=== PATIENT | male | born 1985 | race Caucasian/White ===

== ENCOUNTER 2017-07-24 19:23 | Observation (INO) | payer OTHER ==
[~2017-07-24] VITALS: Ht 182.9 cm; Wt 100.6 kg
[2017-07-24 20:33] LABS: BASO % 0.1 %; BASO ABS # 0.01 K/uL (0-0.2); EOS % 0.7 %; EOS ABS # 0.07 K/uL (0-0.5); HEMATOCRIT 45.8 % (42-52); HEMOGLOBIN 15.6 g/dL (14.0-18.0); IG# 0.02 K/uL (0.00-0.02); LYMPH % 20.9 %; LYMPH ABS # 2.03 K/uL (1.2-3.4); MEAN CELL VOLUME 87.1 fL (80-100); MEAN CORPUSCULAR HEMOGLOBIN 29.7 pg (25-34); MEAN CORPUSCULAR HGB CONC 34.1 g/dl (32-36); MEAN PLATELET VOLUME 10.8 fL (7.4-10.4); MONO % 8.2 %; NEUT % 69.9 %; PLATELET COUNT 286 K/uL (130-400); RED CELL DISTRIBUTION WIDTH CV 12.2 % (11.5-14.5); RED CELL DISTRIBUTION WIDTH SD 38.8 fL (36.4-46.3); WHITE BLOOD COUNT 9.73 K/uL (4.8-10.8)
--- NOTE | 2017-07-24 20:51 | DIAGNOSTIC IMAGING REPORT ---
GALLBLADDER-ABD LIMITED CLINICAL HISTORY: 31 years-old Male presenting with abd pain . TECHNIQUE: Real-time grayscale and limited color Doppler ultrasound imaging of the abdomen limited to the right upper quadrant was performed. COMPARISON: None. FINDINGS: Pancreas: Visualized portions of the pancreatic head and body normal. Liver: Normal echogenicity and echotexture. The liver measures 17.5 cm in maximal sagittal dimension. No sonographic evidence of hepatic mass. Main portal vein patent with normal directional flow. Biliary: No intrahepatic biliary ductal dilatation. Common bile duct measures up to 8 mm in diameter and may contain hypoechoic echogenic debris. Gallbladder: Gallstones without evidence of gallbladder distention, wall thickening, or pericholecystic fluid or inflammatory change. Right kidney: Normal in appearance. No hydronephrosis. Ascites: None. IMPRESSION: Cholelithiasis and extrahepatic biliary ductal dilatation with possible common duct sludge or calculi. No evidence of cholecystitis. Electronically signed by: Joe Carrington M.D. 07/24/2017 8:50 PM Dictated Date/Time: 07/24/2017 8:48 PM
[2017-07-24 20:57] LABS: ALBUMIN 4.1 gm/dl (3.4-5.0); CALCIUM 9.3 mg/dl (8.5-10.1); CREATININE 0.95 mg/dl (0.60-1.40); POTASSIUM 3.6 mmol/L (3.5-5.1)
[2017-07-24 21:00] LABS: TOTAL PROTEIN 7.7 gm/dl (6.4-8.2)
--- NOTE | 2017-07-24 21:40 | History and Physical ---
History & Physical Date & Time of Service: Jul 24, 2017 at 21:38 Chief Complaint: Stomach Pain, Tingling In Fingers Primary Care Physician: No Doctor, Assigned History of Present Illness Source: patient 31 y/o M - denies any medical history. Pt has had intermittent moderate to severe RUQ pain for one week. He denies fevers, nausea, vomiting or diarrhea. The pt was subjected to an US in the ER which revealed extrahepatic biliary ductal dilatation with possible common duct sludge or calculi. The GI service was contacted and have advised that the pt would likely benefit from an ERCP. His pain has resolved at the time of admission. Initial labs are WNL aside from a slight AST elevation. Past Medical/Surgical History Denies any active medical issues. 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 Smoking Status: Never Smoker Allergies Coded Allergies: No Known Allergies (Unverified , 07/24/17) Home Medications No Active Prescriptions or Reported Meds Review of Systems Constitutional: No fever, No chills, No sweats Eyes: No worsening of vision ENT: No hearing loss, No unusual epistaxis, No nasal symptoms Respiratory: No cough, No sputum, No wheezing Cardiovascular: No chest pain, No orthopnea, No PND Abdomen: + pain, No nausea, No vomiting Musculoskeletal: No joint pain, No muscle pain Genitourinary - Male: No hematuria, No dysuria Neurologic: No memory loss, No paralysis, No weakness Psychiatric: No depression symptoms Endocrine: No fatigue Hematologic / Lymphatic: No abnormal bleeding/bruising Integumentary: No rash Allergic / Immunologic: No environmental allergies Physical Exam Vital Signs Date Time Temp Pulse Resp B/P (MAP) Pulse Ox O2 Delivery O2 Flow Rate FiO2 07/24/17 19:26 36.9 91 18 169/91 94 Room Air General Appearance: + pertinent finding Head: normocephalic Eyes: normal inspection ENT: normal ENT inspection, pharynx normal Neck: supple, thyroid normal Respiratory/Chest: chest non-tender, lungs clear, normal breath sounds Cardiovascular: regular rate, rhythm, no edema, no gallop Abdomen/GI: normal bowel sounds, non tender, soft Back: normal inspection, no CVA tenderness Extremities/Musculoskelatal: normal inspection, no calf tenderness, normal capillary refill Neurologic/Psych: 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, no motor/sensory deficits, alert, oriented x 3 Skin: normal color Diagnostics Laboratory Results Results Past 24 Hours Test 07/24/17 20:10 Range/Units White Blood Count 9.73 4.8-10.8 K/uL Red Blood Count 5.26 4.7-6.1 M/uL Hemoglobin 15.6 14.0-18.0 g/dL Hematocrit 45.8 42-52 % Mean Corpuscular Volume 87.1 80-100 fL Mean Corpuscular Hemoglobin 29.7 25-34 pg Mean Corpuscular Hemoglobin Concent 34.1 32-36 g/dl Platelet Count 286 130-400 K/uL Mean Platelet Volume 10.8 7.4-10.4 fL Neutrophils (%) (Auto) 69.9 % Lymphocytes (%) (Auto) 20.9 % Monocytes (%) (Auto) 8.2 % Eosinophils (%) (Auto) 0.7 % Basophils (%) (Auto) 0.1 % Neutrophils # (Auto) 6.80 1.4-6.5 K/uL Lymphocytes # (Auto) 2.03 1.2-3.4 K/uL Monocytes # (Auto) 0.80 0.11-0.59 K/uL Eosinophils # (Auto) 0.07 0-0.5 K/uL Basophils # (Auto) 0.01 0-0.2 K/uL RDW Standard Deviation 38.8 36.4-46.3 fL RDW Coefficient of Variation 12.2 11.5-14.5 % Immature Granulocyte % (Auto) 0.2 % Immature Granulocyte # (Auto) 0.02 0.00-0.02 K/uL Urine Color DK YELLOW Urine Appearance CLEAR CLEAR Urine pH 7.5 4.5-7.5 Urine Specific [place] 1.026 1.000-1.030 Urine Protein NEG NEG Urine Glucose (UA) NEG NEG Urine Ketones TRACE NEG Urine Occult Blood NEG NEG Urine Nitrite NEG NEG Urine Bilirubin NEG NEG Urine Urobilinogen NEG NEG Urine Leukocyte Esterase NEG NEG Urine WBC (Auto) 1-5 0-5 /hpf Urine RBC (Auto) 0-4 0-4 /hpf Urine Hyaline Casts (Auto) 0-5 /lpf Urine Epithelial Cells (Auto) >30 0-5 /lpf Urine Bacteria (Auto) NEG NEG Urine Renal Epithelial Cells 0-5 /lpf Urine Pathogenic Casts 0 /lpf Urine Mucus PRESENT NONE PRSENT Sodium Level 138 136-145 mmol/L Potassium Level 3.6 3.5-5.1 mmol/L Chloride Level 102 98-107 mmol/L Carbon Dioxide Level 29 21-32 mmol/L Anion Gap 7.0 3-11 mmol/L Blood Urea Nitrogen 11 7-18 mg/dl Creatinine 0.95 0.60-1.40 mg/dl Est Creatinine Clear Calc Drug Dose 140.9 ml/min Estimated GFR () 124.9 Estimated GFR (Non- 107.7 BUN/Creatinine Ratio 11.1 10-20 Random Glucose 106 70-99 mg/dl Calcium Level 9.3 8.5-10.1 mg/dl Total Bilirubin 1.1 0.2-1 mg/dl Direct Bilirubin 0.4 0-0.2 mg/dl Aspartate Amino Transf (AST/SGOT) 76 15-37 U/L Alanine Aminotransferase (ALT/SGPT) 61 12-78 U/L Alkaline Phosphatase 89 45-117 U/L Total Protein 7.7 6.4-8.2 gm/dl Albumin 4.1 3.4-5.0 gm/dl Lipase 140 73-393 U/L Diagnostic Radiology US abdomen: Cholelithiasis and extrahepatic biliary ductal dilatation with possible common duct sludge or calculi. No evidence of cholecystitis. Impression Assessment and Plan 31 y/o M - denies any medical history. Pt has had intermittent moderate to severe RUQ pain for one week. He denies fevers, nausea, vomiting or diarrhea. The pt was subjected to an US in the ER which revealed extrahepatic biliary ductal dilatation with possible common duct sludge or calculi. The GI service was contacted and have advised that the pt would likely benefit from an ERCP. His pain has resolved at the time of admission. Initial labs are WNL aside from a slight AST elevation. The pt is admitted for likely ERCP. We will keep him NPO and provide IVF and analgesics as needed. Biliary obstruction is present possibly due to a calculus or sludge. He may then, eventually require a cholecystectomy. We will consult with GI following the procedure. LFTs will be repeated AM. Full code - SCDs Total time for this admit including review of labs, meds, imaging, records - discussion with pt and ER attending - 35 min Level of Care Med/Surg Resuscitation Status FULL RESUSCITATION VTE Prophylaxis Risk Level: Very Low Given or contraindicated: SCD's
[2017-07-24] MEDS ORDERED: ONDANSETRON INJ 2 MG/ML 2 ML VIAL IV PRN (22:15)
[2017-07-24] MEDS ORDERED: MoRPHine SULFATE 2 MG/ML CARP IV PRN (22:30)
[2017-07-24] MEDS ORDERED: IV FLUIDS COMPLETED PRN (23:00)
[2017-07-24 23:12] VITALS: O2SAT 98
--- NOTE | 2017-07-24 23:53 | EMERGENCY ROOM VISIT NOTE ---
History Report prepared by Malihaibracquel: Víctor Juárez Under the Supervision of: Dr. Marcellus Garcia D.O. First contact with patient: 19:30 Chief Complaint: ABDOMINAL PAIN Stated Complaint: STOMACH PAIN, TINGLING IN FINGERS History of Present Illness The patient is a 31 year old male who presents to the Emergency Room with complaints of resolved abdominal pain that began at 181. He describes the pain as a sharp sensation. The patient states that he has not felt himself all week. He reports that around 1817 today he developed abdominal pain. The patient states that he was having difficulties breathing and talking when his abdominal pain started. He states that the pain lasted for 20 minutes. The patient states that he then began to develop tingling in his fingers.He reports that he then experienced diaphoresis. The patient states that by the time the EMT came to evaluate him, his pain resolved. The patient reports he had similar symptoms in the past, but reports that his symptoms resolved over night. The patient denies headache, change in vision, fevers, chest pain, shortness of breath, nausea, vomiting, diarrhea, pain with urination, and melena. The patient denies history of heart disease, smoking, diabetes, hypertension, hyperlipidemia. Source of History: patient Onset: 1817 Position: abdomen Quality: sharp Timing: resolved Associated Symptoms: + diaphoresis, + SOB, + numbness, No fevers, No headache, No chest pain, No nausea, No vomiting, No diarrhea, No urinary symptoms Review of Systems See HPI for pertinent positives & negatives. A total of 10 systems reviewed and were otherwise negative. Past Medical & Surgical Medical Problems: (1) Biliary obstruction (2) No known problems Family History FH: gallbladder disease Heart disease Hypertension Social History Smoking Status: Never Smoker Smokeless Tobacco Use: No Alcohol Use: none Drug Use: none Marital Status: single Housing Status: lives with roommate Occupation Status: employed Current/Historical Medications No Active Prescriptions or Reported Meds Allergies Coded Allergies: No Known Allergies (Unverified , 07/24/17) Physical Exam Vital Signs Date Time Temp Pulse Resp B/P (MAP) Pulse Ox O2 Delivery O2 Flow Rate FiO2 07/24/17 23:12 77 18 124/88 98 Room Air 07/24/17 21:20 77 16 149/97 97 Room Air 07/24/17 19:26 36.9 91 18 169/91 94 Room Air Physical Exam GENERAL: Sitting up in bed, alert, well appearing, well nourished, no distress, non-toxic EYE EXAM: normal conjunctiva. PERRL and EOM's grossly intact. OROPHARYNX: no exudate, no erythema, lips, buccal mucosa, and tongue normal and mucous membranes are moist NECK: supple, no nuchal rigidity, no adenopathy, non-tender LUNGS: Clear to auscultation. Normal chest wall mechanics HEART: no murmurs, S1 normal and S2 normal ABDOMEN: abdomen soft, non-tender, normo-active bowel sounds, no masses, no rebound or guarding. BACK: Back is symmetrical on inspection and there is no deformity, no midline tenderness, no CVA tenderness. SKIN: no rashes and no bruising UPPER EXTREMITIES: upper extremities are grossly normal. LOWER EXTREMITIES: No pitting edema. NEURO EXAM: Normal sensorium, cranial nerves II-XII grossly intact, normal speech, no gross weakness of arms, no gross weakness of legs. Gross sensation intact. Medical Decision & Procedures ER Provider Diagnostic Interpretation: Radiology results as stated below per my review and the radiologist's interpretation: GALLBLADDER-ABD LIMITED CLINICAL HISTORY: 31 years-old Male presenting with abd pain . TECHNIQUE: Real-time grayscale and limited color Doppler ultrasound imaging of the abdomen limited to the right upper quadrant was performed. COMPARISON: None. FINDINGS: Pancreas: Visualized portions of the pancreatic head and body normal. Liver: Normal echogenicity and echotexture. The liver measures 17.5 cm in maximal sagittal dimension. No sonographic evidence of hepatic mass. Main portal vein patent with normal directional flow. Biliary: No intrahepatic biliary ductal dilatation. Common bile duct measures up to 8 mm in diameter and may contain hypoechoic echogenic debris. Gallbladder: Gallstones without evidence of gallbladder distention, wall thickening, or pericholecystic fluid or inflammatory change. Right kidney: Normal in appearance. No hydronephrosis. Ascites: None. IMPRESSION: Cholelithiasis and extrahepatic biliary ductal dilatation with possible common duct sludge or calculi. No evidence of cholecystitis. Electronically signed by: Joe Carrington M.D. 07/24/2017 8:50 PM Dictated Date/Time: 07/24/2017 8:48 PM Laboratory Results 07/24/17 20:10 Red Blood Count 5.26, Mean Corpuscular Volume 87.1, Mean Corpuscular Hemoglobin 29.7, Mean Corpuscular Hemoglobin Concent 34.1, Mean Platelet Volume 10.8, Neutrophils (%) (Auto) 69.9, Lymphocytes (%) (Auto) 20.9, Monocytes (%) (Auto) 8.2, Eosinophils (%) (Auto) 0.7, Basophils (%) (Auto) 0.1, Neutrophils # (Auto) 6.80, Lymphocytes # (Auto) 2.03, Monocytes # (Auto) 0.80, Eosinophils # (Auto) 0.07, Basophils # (Auto) 0.01 07/24/17 20:10 Test 07/24/17 20:10 White Blood Count 9.73 K/uL (4.8-10.8) Red Blood Count 5.26 M/uL (4.7-6.1) Hemoglobin 15.6 g/dL (14.0-18.0) Hematocrit 45.8 % (42-52) Mean Corpuscular Volume 87.1 fL (80-100) Mean Corpuscular Hemoglobin 29.7 pg (25-34) Mean Corpuscular Hemoglobin Concent 34.1 g/dl (32-36) Platelet Count 286 K/uL (130-400) Mean Platelet Volume 10.8 fL (7.4-10.4) Neutrophils (%) (Auto) 69.9 % Lymphocytes (%) (Auto) 20.9 % Monocytes (%) (Auto) 8.2 % Eosinophils (%) (Auto) 0.7 % Basophils (%) (Auto) 0.1 % Neutrophils # (Auto) 6.80 K/uL (1.4-6.5) Lymphocytes # (Auto) 2.03 K/uL (1.2-3.4) Monocytes # (Auto) 0.80 K/uL (0.11-0.59) Eosinophils # (Auto) 0.07 K/uL (0-0.5) Basophils # (Auto) 0.01 K/uL (0-0.2) RDW Standard Deviation 38.8 fL (36.4-46.3) RDW Coefficient of Variation 12.2 % (11.5-14.5) Immature Granulocyte % (Auto) 0.2 % Immature Granulocyte # (Auto) 0.02 K/uL (0.00-0.02) Urine Color DK YELLOW Urine Appearance CLEAR (CLEAR) Urine pH 7.5 (4.5-7.5) Urine Specific [place] 1.026 (1.000-1.030) Urine Protein NEG (NEG) Urine Glucose (UA) NEG (NEG) Urine Ketones TRACE (NEG) Urine Occult Blood NEG (NEG) Urine Nitrite NEG (NEG) Urine Bilirubin NEG (NEG) Urine Urobilinogen NEG (NEG) Urine Leukocyte Esterase NEG (NEG) Urine WBC (Auto) 1-5 /hpf (0-5) Urine RBC (Auto) 0-4 /hpf (0-4) Urine Hyaline Casts (Auto) /lpf (0-5) Urine Epithelial Cells (Auto) >30 /lpf (0-5) Urine Bacteria (Auto) NEG (NEG) Urine Renal Epithelial Cells /lpf (0-5) Urine Pathogenic Casts /lpf (0) Urine Mucus PRESENT (NONE PRSENT) Anion Gap 7.0 mmol/L (3-11) Est Creatinine Clear Calc Drug Dose 140.9 ml/min Estimated GFR () 124.9 Estimated GFR (Non- 107.7 BUN/Creatinine Ratio 11.1 (10-20) Calcium Level 9.3 mg/dl (8.5-10.1) Total Bilirubin 1.1 mg/dl (0.2-1) Direct Bilirubin 0.4 mg/dl (0-0.2) Aspartate Amino Transf (AST/SGOT) 76 U/L (15-37) Alanine Aminotransferase (ALT/SGPT) 61 U/L (12-78) Alkaline Phosphatase 89 U/L (45-117) Total Protein 7.7 gm/dl (6.4-8.2) Albumin 4.1 gm/dl (3.4-5.0) Lipase 140 U/L (73-393) Laboratory results per my review. ED Course ED COURSE: Vital signs were reviewed and showed hypertension. The patients medical record was reviewed The above diagnostic studies were performed and reviewed. ED treatments and interventions as stated above. 1931: The patient was evaluated in room A11B. A complete history and physical examination was performed. 2121: I discussed the patients case with Dr. Portillo, [facility] Gastroenterology. He said to bring the patient in for further evaluated. He states he will be able to evaluated the patient for a scope in the morning. 2154: I discussed the patients case with Dr. Corona [facility] Hospitalist. He understands the patients condition and agrees to accept the patient. The patient will be further evaluated. Medical Decision Differential diagnoses includes but is not limited to gastritis, peptic ulcer disease, GERD, gallbladder disease, pancreatitis, small bowel obstruction, acute coronary syndrome, pericarditis, ischemic bowel, irritable bowel disease, irritable bowel syndrome, appendicitis, diverticulitis, malignancy, hernia, urinary tract infection, torsion, [/ectopic (if female)], perforation, trauma, infectious. Patient is a 31-year-old male that presents to the ER for severe sudden epigastric abdominal pain which started around 620. He notes the pain has nearly resolved. CBC was unremarkable. BMP was normal. Bilirubin was slightly elevated along with AST. Lipase is normal. UA was negative. Ultrasound of the gallbladder shows cholelithiasis with CBD measuring 8 mm containing hypoechoic echogenic debris. Discuss with GI as the patient was asymptomatic. Dr. valentin agreed with observation and evaluation in the a.m. Patient family were updated at bedside is admitted to internal medicine. Medication Reconcilliation Current Medication List: was personally reviewed by me Blood Pressure Screening Patient's blood pressure: Elevated blood pressure Referred to Hospitalist. Consults Time Called: 2121 Consulting Physician: Dr. Portillo [facility] Gastroenter[facility] Returned Call: 2121 I discussed the patients case with Dr. Portillo, [facility] Gastroenter[facility]. He said to bring the patient in for further evaluated. He states he will be able to evaluated the patient for a scope in the morning. Additional Consults: Time Called: 2137 Consulted Physician: Dr. Corona [facility] Hospitalist Returned Call: 2154 Additional Comments: I discussed the patients case with Dr. Corona [facility] Hospitalist. He understands the patients condition and agrees to accept the patient. The patient will be further evaluated. Impression Primary Impression: Choledocholithiasis Scribe Attestation The scribe's documentation has been prepared under my direction and personally reviewed by me in its entirety. I confirm that the note above accurately reflects all work, treatment, procedures, and medical decision making performed by me. Departure Information Dispostion Being Evaluated By Hospitalist Prescriptions No Active Prescriptions or Reported Meds Referrals No Doctor, Assigned (PCP) Patient Instructions My [facility]
[2017-07-25] MEDS: D5NSS + 20MEQ KCL 1,000 ML IV SCH ×2 (01:13→11:02)
[2017-07-25 03:26] VITALS: BP 146/78; PULSE 80; TEMP 36.9; Ht 182.9 cm; Wt 100.6 kg
[2017-07-25 07:22] VITALS: BP 121/78; PULSE 66; TEMP 37; O2SAT 98
[2017-07-25 08:45] LABS: ALBUMIN 3.7 gm/dl (3.4-5.0); TOTAL PROTEIN 7.1 gm/dl (6.4-8.2)
--- NOTE | 2017-07-25 10:03 | Gastrointestinal Consultation ---
Gastrointestinal Consultation Date of Consultation: Jul 25, 2017 Attending Physician: Chloe Gibson Consulting Physician: Rochelle Reason for Consultation: ERCP History of Present Illness Patient is a 31 year old male with no past medical history who presents through the ED for evaluation of persistent epigastric abdominal pain. Pt was seen an evaluated, chart reviewed. Mother is at bedside. Pt notes he has had similar pain before. Arnaldo borja had abrupt onset upper abdominal pain, worse in RUQ with nausea, vomiting and diarrhea. This persisted for a few day sand resolved. He felt well in the interim. Last evening, developed sharp upper abdominal pain , no associated symptoms. Denies fever, chills, nausea, vomiting or diarrhea. Pain persisted. Notes his mother became concerned who suggested Ed evaluation given strong family history of GB disease. Today, he notes his symptoms are largely resolved. He has mild epigastric discomfort, no nausea or vomiting. He is not requiring any analgesia. US w/ evidence of gallstones and CBD of 8mm. LFTs yesterday were minimally elevated, today labs are indicative of obstruction w/ TB 4 and elevated transaminases. He is afebrile, with stable VS. RUQ US: Cholelithiasis and extrahepatic biliary ductal dilatation with possible common duct sludge or calculi. No evidence of cholecystitis. Past Medical/Surgical History Medical Problems: (1) Choledocholithiasis Status: Acute Past Medical History: None Past Surgical History: None Family History FH: gallbladder disease Heart disease Hypertension Social History Smoking Status: Unknown if Ever Smoked Alcohol Use: none Drug Use: none Marital Status: single Housing Status: lives with roommate Occupation Status: employed Allergies Coded Allergies: No Known Allergies (Unverified , 07/24/17) Current Medications Home Meds and Scripts Medications Dose Route/Sig Max Daily Dose Days Date Category No Active Prescriptions or Reported Medications Rx Review of Systems Constitutional: No fever, No chills, No sweats, No weight loss, No weakness ENT: No hearing loss, No trouble swallowing, No pain on swallowing Respiratory: No cough, No sputum, No wheezing, No shortness of breath, No dyspnea on exertion Cardiac: No chest pain, No orthopnea, No edema Abdomen: + pain (mild epigastric pain ), No nausea, No vomiting, No diarrhea, No constipation, No GI bleeding Musculoskeletal: No joint pain Endo: No fatigue Skin: No rash, No itch, No jaundice Physical Exam Date Time Temp Pulse Resp B/P (MAP) Pulse Ox O2 Delivery O2 Flow Rate FiO2 07/25/17 07:22 37.0 66 18 121/78 (92) 98 Room Air 07/25/17 03:26 36.9 80 18 146/78 Room Air 07/24/17 23:12 77 18 124/88 98 Room Air 07/24/17 21:20 77 16 149/97 97 Room Air 07/24/17 19:26 36.9 91 18 169/91 94 Room Air General Appearance: no apparent distress Eyes: PERRL ENT: hearing grossly normal, TMs normal Neck: supple, no adenopathy Respiratory/Chest: lungs clear, normal breath sounds, no respiratory distress, no accessory muscle use Cardiovascular: regular rate, rhythm, no edema, no gallop, no JVD, no murmur Abdomen: normal bowel sounds, soft, no organomegaly, no pulsatile mass, + tenderness (mild epigastric discomfort ) Neurologic/Psych: alert, normal mood/affect, oriented x 3 Skin: normal color, no jaundice, warm/dry, no rash Laboratory Results Last 24 Hours Test 07/24/17 20:10 07/25/17 07:29 White Blood Count 9.73 K/uL Red Blood Count 5.26 M/uL Hemoglobin 15.6 g/dL Hematocrit 45.8 % Mean Corpuscular Volume 87.1 fL Mean Corpuscular Hemoglobin 29.7 pg Mean Corpuscular Hemoglobin Concent 34.1 g/dl Platelet Count 286 K/uL Mean Platelet Volume 10.8 fL Neutrophils (%) (Auto) 69.9 % Lymphocytes (%) (Auto) 20.9 % Monocytes (%) (Auto) 8.2 % Eosinophils (%) (Auto) 0.7 % Basophils (%) (Auto) 0.1 % Neutrophils # (Auto) 6.80 K/uL Lymphocytes # (Auto) 2.03 K/uL Monocytes # (Auto) 0.80 K/uL Eosinophils # (Auto) 0.07 K/uL Basophils # (Auto) 0.01 K/uL RDW Standard Deviation 38.8 fL RDW Coefficient of Variation 12.2 % Immature Granulocyte % (Auto) 0.2 % Immature Granulocyte # (Auto) 0.02 K/uL Urine Color DK YELLOW Urine Appearance CLEAR Urine pH 7.5 Urine Specific [place] 1.026 Urine Protein NEG Urine Glucose (UA) NEG Urine Ketones TRACE Urine Occult Blood NEG Urine Nitrite NEG Urine Bilirubin NEG Urine Urobilinogen NEG Urine Leukocyte Esterase NEG Urine WBC (Auto) 1-5 /hpf Urine RBC (Auto) 0-4 /hpf Urine Hyaline Casts (Auto) /lpf Urine Epithelial Cells (Auto) >30 /lpf Urine Bacteria (Auto) NEG Urine Renal Epithelial Cells /lpf Urine Pathogenic Casts /lpf Urine Mucus PRESENT Sodium Level 138 mmol/L Potassium Level 3.6 mmol/L Chloride Level 102 mmol/L Carbon Dioxide Level 29 mmol/L Anion Gap 7.0 mmol/L Blood Urea Nitrogen 11 mg/dl Creatinine 0.95 mg/dl Est Creatinine Clear Calc Drug Dose 140.9 ml/min Estimated GFR () 124.9 Estimated GFR (Non- 107.7 BUN/Creatinine Ratio 11.1 Random Glucose 106 mg/dl Calcium Level 9.3 mg/dl Total Bilirubin 1.1 mg/dl 4.4 mg/dl Direct Bilirubin 0.4 mg/dl 2.1 mg/dl Aspartate Amino Transf (AST/SGOT) 76 U/L 304 U/L Alanine Aminotransferase (ALT/SGPT) 61 U/L 361 U/L Alkaline Phosphatase 89 U/L 114 U/L Total Protein 7.7 gm/dl 7.1 gm/dl Albumin 4.1 gm/dl 3.7 gm/dl Lipase 140 U/L Impression Patient is a 31 year old male with gallstones and biliary dilation with suspected CBD stone given elevated LFTs overnight w/ TB 4 DB 2 AST 300's ALT 300 's ALKP 100's. He is asymptomatic, without abdominal pain, nausea, vomiting. He is afebrile with stable vital signs without leukocytosis. No evidence of cholangitis. Will need ERCP, hopefully today, based on scheduling. Plan NPO Stat MRCP IV analgesia IV antiemetics Plan for ERCP today given OR availability Monitor pt for s/s of cholangitis - daily CBC, abd exam, vital signs GI to follow. Please call with any questions, concerns, acute changes. I have seen , examined and agree with the plan as outlined by PEG Garcia as above. -exam reveals soft abd -Plan for ERCP today
[2017-07-25] MEDS ORDERED: INDOMETHACIN 50 MG SUPP PR SCH (13:00)
[2017-07-25] MEDS ORDERED: ATROPINE SULFATE 0.1 MG/ML 5ML SYR IV PRN (13:15)
[2017-07-25] MEDS ORDERED: EpHEDrine SULFATE INJ 50 MG/ML AMP IV PRN (13:15)
[2017-07-25] MEDS ORDERED: ONDANSETRON INJ 2 MG/ML 2 ML VIAL IV PRN (13:15)
[2017-07-25] MEDS ORDERED: FENTANYL CITRATE INJ 50 MCG/1 ML 2 ML VIAL IV PRN (13:15)
[2017-07-25] MEDS ORDERED: HYDROmorphone INJ 1 MG/ML SYR IV PRN (13:15)
[2017-07-25] MEDS ORDERED: PROMETHAZINE HCL INJ 12.5 MG in SODIUM CHLORIDE 0.9% 50ML 50 ML IV PRN (13:15)
--- NOTE | 2017-07-25 13:35 | Endo History and Physical ---
History & Physical Date of Service: Jul 25, 2017. Chief Complaint: Abdominal pain Referring Physician: History of Present Illness Patient presented with abdominal pain found to have elevated liver test, bilirubin 4 this am with an US suspicious for stone or sludge within the CBD. Past Surgical History Hx Cardiac Surgery: No Hx Abdominal Surgery: No Hx Post-Op Nausea and Vomiting: No Hx Cancer Surgery: No Hx Thoracic Surgery: No Hx Orthopedic: No Hx Urinary Tract Surgery: No Social History Smoking Status: Unknown if Ever Smoked Smokeless Tobacco Use: No Hx Substance Use: No Hx Alcohol Use: No Allergies Coded Allergies: No Known Allergies (Unverified , 07/24/17) Current Medications Reported Home Medications Medications Dose Route/Sig Max Daily Dose Days Date Category No Active Prescriptions or Reported Medications Rx Vital Signs Weight (Kilograms): 100.600 Height (Feet): 6 Height (Inches): 0.00 Date Time Temp Pulse Resp B/P (MAP) Pulse Ox O2 Delivery O2 Flow Rate FiO2 07/25/17 08:00 Room Air 07/25/17 07:22 37.0 66 18 121/78 (92) 98 Room Air 07/25/17 03:26 36.9 80 18 146/78 Room Air 07/24/17 23:12 77 18 124/88 98 Room Air 07/24/17 21:20 77 16 149/97 97 Room Air 07/24/17 19:26 36.9 91 18 169/91 94 Room Air Physical Exam General Appearance: no apparent distress, + pertinent finding (mild scleral icterus) Respiratory/Chest: Auscultation: breath sounds normal Cardiovascular: Heart Auscultation: RRR Abdomen: Inspection & Palpation: soft, RUQ tenderness Assessment and Plan Patient presented with abdominal pain found to have elevated liver test, bilirubin 4 this am with an US suspicious for stone or sludge within the CBD. Givne the US and elevated bilirubin will proceed with ERCP today. The MRCP does show duct dilation, but no obvious filling defect. Given the rising bilirubin and Liver Enzymes I suspect this is a false negative study. We have discussed the risks (bleeding, infection, perforation, pain, failed cannulation and pancreatitis). Plan ERCP today
--- NOTE | 2017-07-25 13:38 | DIAGNOSTIC IMAGING REPORT ---
MRCP CLINICAL HISTORY: 31 years-old Male presenting with CBD stone, gall stones, elevated LFTs, right upper quadrant pain. TECHNIQUE: Multisequence, multiplanar MR imaging of the abdomen was performed without the use of intravenous contrast. IV contrast: None. COMPARISON: None. FINDINGS: Localizer images: Unremarkable. Lung bases: Lungs and pleural spaces clear. Normal heart size. No pericardial or pleural effusion. Liver: Normal morphology. No gross evidence of a liver lesion allowing for noncontrast technique. Normal flow related enhancement in the hepatic vasculature. Biliary: Intrahepatic biliary trifurcation. The cystic duct inserts along the posterior aspect of the common hepatic duct immediately superior to the pancreatic head. Mild intrahepatic biliary ductal dilatation diffusely. The common duct is also dilated measuring up to 8 mm in the midportion with smooth tapering to the pancreatic head where the duct measures 5 mm. No choledocholithiasis. Gallbladder contains gallstones. Mild gallbladder wall thickening. No pericholecystic inflammatory change. Pancreas: Normal noncontrast appearance. Spleen: Normal noncontrast appearance. Adrenal glands: Normal noncontrast appearance. Kidneys and ureters: Normal noncontrast appearance. No hydronephrosis. Normal ureters. Bowel: Normal. No bowel obstruction. Trace periduodenal fluid. Peritoneal cavity: No free fluid or intraperitoneal gas. Lymph nodes: No gross lymphadenopathy allowing for noncontrast technique. Vasculature: Normal noncontrast appearance. Abdominal wall: Normal. Musculoskeletal: Normal. IMPRESSION: 1. Intrahepatic and extrahepatic biliary ductal dilatation without evidence of choledocholithiasis. This may be due to a recently passed stone. Trace periduodenal free fluid also could suggest a recently passed stone. 2. Cholelithiasis. Gallbladder wall thickening without convincing evidence of cholecystitis. If there is clinical concern for this diagnosis, HIDA scan could be obtained. Electronically signed by: Joe Carrington M.D. 07/25/2017 1:37 PM Dictated Date/Time: 07/25/2017 1:28 PM
[2017-07-25] MEDS ORDERED: INDOMETHACIN 50 MG SUPP PR ONE (13:45)
[2017-07-25] MEDS ORDERED: LIDOCAINE HCL 2% 2 ML VIAL (20MG/ML) ONE (13:46)
[2017-07-25] MEDS ORDERED: ROCURONIUM BROMIDE 10 MG/ML 5 ML VIAL IV ONE (13:46)
[2017-07-25] MEDS ORDERED: MIDAZOLAM HCL 1 MG/ML 2ML VIAL ONE (13:46)
[2017-07-25] MEDS ORDERED: DEXAMETHASONE SOD INJ 4 MG/ML VIAL ONE (13:46)
[2017-07-25] MEDS ORDERED: SUCCINYLCHOLINE CHLORIDE 20 MG/ML 10 ML VIAL IV ONE (13:46)
[2017-07-25] MEDS ORDERED: ONDANSETRON INJ 2 MG/ML 2 ML VIAL ONE (13:46)
[2017-07-25] MEDS ORDERED: FENTANYL CITRATE INJ 50 MCG/1 ML 2 ML VIAL ONE (13:46)
[2017-07-25] MEDS ORDERED: PROPOFOL IV EMULSION 10 MG/ML 20 ML VIAL IV ONE (13:46)
--- NOTE | 2017-07-25 14:41 | GI REPORT ---
Procedure Date: 07/25/2017 1:38 PM Procedure: ERCP Indications: Suspected bile duct stone(s), Jaundice Medicines: General Anesthesia, Indocin 100 mg MD Complications: No immediate complications. Estimated blood loss: Minimal. Estimated Blood Loss: Estimated blood loss was minimal. Procedure: Pre-Anesthesia Assessment: - Prior to the procedure, a History and Physical was performed, and patient medications, allergies and sensitivities were reviewed. The patient's tolerance of previous anesthesia was reviewed. - The risks and benefits of the procedure and the sedation options and risks were discussed with the patient. All questions were answered and informed consent was obtained. - Patient identification and proposed procedure were verified prior to the procedure by the physician, the nurse and the electric vehicle electrician. The procedure was verified in the procedure room. - Pre-procedure physical examination revealed no contraindications to sedation. - ASA Grade Assessment: II - A patient with mild systemic disease. - After reviewing the risks and benefits, the patient was deemed in satisfactory condition to undergo the procedure. - The anesthesia plan was to use general anesthesia. - Immediately prior to administration of medications, the patient was re-assessed for adequacy to receive sedatives. - The heart rate, respiratory rate, oxygen saturations, blood pressure, adequacy of pulmonary ventilation, and response to care were monitored throughout the procedure. - The physical status of the patient was re-assessed after the procedure. After obtaining informed consent, the scope was passed under direct vision. Throughout the procedure, the patient's blood pressure, pulse, and oxygen saturations were monitored continuously. The SCOPE was introduced through the mouth, and advanced to the duodenum and used to inject contrast into the bile duct. The ERCP was accomplished without difficulty. The patient tolerated the procedure well. 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 The esophagus was successfully intubated under direct vision without detailed examination of the pharynx, larynx, and associated structures, and upper GI tract. The upper GI tract was grossly normal. The major papilla was congested. The ventral pancreatic duct was inadvertently cannulated with the short-nosed traction sphincterotome (Omni 35) and 0.035 in Acrobat 2 guidewire without any complications. This wire was left in place to aid in biliary cannulation (double wire technique) and facilitate placement of a prophylactic pancreatic stent. The bile duct was deeply cannulated with the short-nosed traction sphincterotome (Omni 35) and 0.035 in Acrobat 2 guidewire. Contrast was injected. I personally interpreted the bile duct images. Contrast extended to the entire biliary tree. The biliary orifice was stenotic. This appeared benign. The lower third of the main bile duct contained several filling defects thought to be stones. Biliary sphincterotomy was made with a monofilament Fusion OMNI sphincterotome using ERBE electrocautery, there was immediate drainage of pus from the biliary tree. There was no post-sphincterotomy bleeding. One prophylactic 5 Fr by 7 cm pancreatic stent with a full external pigtail and no internal flaps was placed 7 cm into the ventral pancreatic duct. Clear fluid flowed through the stent. To discover objects, the biliary tree was swept with an 8.5 mm to 15 mm balloon starting at the bifurcation several times. Four or 5 pale pigmented stones were removed. No stones remained on occlusion cholangiogram. A large amount of pus was swept from the duct. One 10 Fr by 7 cm biliary stent with a single external flap and a single internal flap was placed 7 cm into the common bile duct. Bile and pus flowed through the stent. The stent was in good position. Indomethacin 100 mg was given via suppository to decrease the risk of post-ERCP pancreatitis (PEP). The total fluoroscopy exposure time was 1 minute and 31 seconds. The endoscope was withdrawn from the patient. Impression: - The major papilla appeared congested. - Biliary papillary stenosis, benign. - Choledocholithiasis and evidence of cholangitis was found. Complete removal was accomplished by biliary sphincterotomy and balloon extraction. - A biliary sphincterotomy was performed. - One prophylactic pancreatic stent was placed into the ventral pancreatic duct. - One biliary stent was placed into the common bile duct. - Indomethacin given to decrease risk of post-ERCP pancreatitis. Recommendation: - [facility]. - Use broad spectrum antibiotics for 2 weeks. - Repeat ERCP in 6 weeks to remove stent. Zay Sahu D.O. Zay Sahu, 07/25/2017 2:41:13 PM This report has been signed electronically. Note Initiated On: 07/25/2017 1:38 PM I attest to the content of the Intraoperative Record and orders documented therein, exceptions below
--- NOTE | 2017-07-25 14:42 | [facility] Post Operative Brief Note ---
Immediate Operative Summary Operative Date Jul 25, 2017. Pre-Operative Diagnosis common bile duct stones Post-Operative Diagnosis Gall stones, colangitis Procedure(s) Performed Endoscopic Retrograde Cholangiopancreatography with gall stone extraction billiary stent placement, pancreatic stent placement Surgeon Dr. Zay Sahu Virtual Assistant Surgeon(s) NA Estimated Blood Loss none per surgeon Findings Consistent with Post-Op Diagnosis Specimens None Drains 1 bilary stent / 1 pancreatic stent Anesthesia Type General Complication(s) none Disposition Accompanied Pt To Recover: no Disposition: Recovery Room / PACU
[2017-07-25] MEDS ORDERED: PIPERACILL/TAZOBAC CONSULT ACTIVE PRN (14:45)
--- NOTE | 2017-07-25 14:53 | DIAGNOSTIC IMAGING REPORT ---
ERCP BILIARY DUCTAL CLINICAL HISTORY: 31 years-old Male presenting with DUCT EXPLORATION. TECHNIQUE: Fluoroscopy was provided for an intraoperative cholangiogram status post cholecystectomy. Contrast was injected through the cystic duct remnant. COMPARISON: MRCP from earlier the same day. FINDINGS: A scope projects over the descending portion of the duodenum. Subsequently, the common bile duct was cannulated and contrast injected. Mild prominence of the common bile duct. Possible filling defect in the common duct versus gas. Guidewire was passed into the intrahepatic bile ducts. The cystic duct opacifies normally. Gallstones evident in the gallbladder. A balloon was passed through the common duct. At the conclusion of the exam, a plastic common duct stent was placed. No intrahepatic biliary duct dilatation at the conclusion of the exam. Fluoroscopy dosage (mGy): 22.42. Fluoroscopy time: 91.7 seconds. Number of fluoroscopic spot images: 9. IMPRESSION: Fluoroscopy provided for an intraoperative cholangiogram. Suspected filling defect in the common bile duct subsequently cleared. Placement of a common bile duct stent. Electronically signed by: Joe Carrington M.D. 07/25/2017 2:52 PM Dictated Date/Time: 07/25/2017 2:49 PM
--- NOTE | 2017-07-25 14:55 | Progress Note ---
Progress Note Date of Service Jul 25, 2017. Progress Note Patient underwent ERCP this afternoon due to increasing LFT and bilirubin. Findings: Several CBD stones removed Cholangitis (pus in the bile duct) Recomendations: 1) Begin antibiotics (2 week course) 2) avoid NSAIDS for 1 week 3) may have clear liquids 4) surgical consultation to discuss cholecystectomy 5) repeat ERCP in 6 weeks for biliary stent removal.
[2017-07-25] MEDS ORDERED: PIPERACILL/TAZOBAC IV 3.375 GM in DEXTROSE 5% 100ML IV ONE (15:00)
--- NOTE | 2017-07-25 15:10 | Anesthesiology Progress Note ---
Anesthesia Post Op Note Date & Time Jul 25, 2017 at 15:08 Vital Signs Pain Intensity: 0 Vital Signs Past 12 Hours Date Time Temp Pulse Resp B/P (MAP) Pulse Ox O2 Delivery O2 Flow Rate FiO2 07/25/17 15:00 37.2 89 14 133/91 100 Room Air 07/25/17 14:50 103 20 140/87 100 Oxymask 10 07/25/17 14:43 37.5 102 16 149/85 100 Oxymask 10 07/25/17 08:00 Room Air 07/25/17 07:22 37.0 66 18 121/78 (92) 98 Room Air 07/25/17 03:26 36.9 80 18 146/78 Room Air Notes Mental Status: alert / awake / arousable, participated in evaluation Pt Amnestic to Procedure: Yes Nausea / Vomiting: adequately controlled Pain: adequately controlled Airway Patency, RR, SpO2: stable & adequate BP & HR: stable & adequate Hydration State: stable & adequate Anesthetic Complications: no major complications apparent Awake, doing well, VSS. No complaints. Ready for d/c
[2017-07-25 16:09] VITALS: BP 138/82; PULSE 77; TEMP 37; O2SAT 97
[2017-07-25 16:57] VITALS: BP 124/80; PULSE 72; TEMP 36.9; O2SAT 96
--- NOTE | 2017-07-25 18:51 | Progress Note ---
Subjective Date of Service: Jul 25, 2017. Subjective Patient is resting comfortably eating a clear liquid diet after his ERCP and stone removal his pain is most completely resolved Problem List Medical Problems: (1) Choledocholithiasis Status: Acute Review of Systems Constitutional: No fever, No chills, No weakness, No fatigue Respiratory: No cough, No shortness of breath Cardiac: No chest pain, No edema Abdomen: No pain, No nausea, No vomiting, No diarrhea Musculoskeletal: No joint pain, No muscle pain Objective Vital Signs Date Time Temp Pulse Resp B/P (MAP) Pulse Ox O2 Delivery O2 Flow Rate FiO2 07/25/17 16:57 36.9 72 18 124/80 (95) 96 Room Air 07/25/17 16:09 37.0 77 18 138/82 (100) 97 Room Air 07/25/17 16:00 Room Air 07/25/17 15:20 80 14 135/84 96 Room Air 07/25/17 15:10 88 16 138/80 96 Room Air 07/25/17 15:00 37.2 89 14 133/91 100 Room Air 07/25/17 14:50 103 20 140/87 100 Oxymask 10 07/25/17 14:43 37.5 102 16 149/85 100 Oxymask 10 07/25/17 08:00 Room Air 07/25/17 07:22 37.0 66 18 121/78 (92) 98 Room Air 07/25/17 03:26 36.9 80 18 146/78 Room Air 07/24/17 23:12 77 18 124/88 98 Room Air 07/24/17 21:20 77 16 149/97 97 Room Air 07/24/17 19:26 36.9 91 18 169/91 94 Room Air Physical Exam General Appearance: WD/WN, no apparent distress Eyes: normal inspection, sclerae normal Respiratory/Chest: chest non-tender, lungs clear, normal breath sounds Cardiovascular: regular rate, rhythm, no murmur Abdomen: normal bowel sounds, soft Neurologic/Psychiatric: alert, oriented x 3 Laboratory Results Last 24 Hours Test 07/24/17 20:10 07/25/17 07:29 White Blood Count 9.73 K/uL Red Blood Count 5.26 M/uL Hemoglobin 15.6 g/dL Hematocrit 45.8 % Mean Corpuscular Volume 87.1 fL Mean Corpuscular Hemoglobin 29.7 pg Mean Corpuscular Hemoglobin Concent 34.1 g/dl Platelet Count 286 K/uL Mean Platelet Volume 10.8 fL Neutrophils (%) (Auto) 69.9 % Lymphocytes (%) (Auto) 20.9 % Monocytes (%) (Auto) 8.2 % Eosinophils (%) (Auto) 0.7 % Basophils (%) (Auto) 0.1 % Neutrophils # (Auto) 6.80 K/uL Lymphocytes # (Auto) 2.03 K/uL Monocytes # (Auto) 0.80 K/uL Eosinophils # (Auto) 0.07 K/uL Basophils # (Auto) 0.01 K/uL RDW Standard Deviation 38.8 fL RDW Coefficient of Variation 12.2 % Immature Granulocyte % (Auto) 0.2 % Immature Granulocyte # (Auto) 0.02 K/uL Urine Color DK YELLOW Urine Appearance CLEAR Urine pH 7.5 Urine Specific Anderson 1.026 Urine Protein NEG Urine Glucose (UA) NEG Urine Ketones TRACE Urine Occult Blood NEG Urine Nitrite NEG Urine Bilirubin NEG Urine Urobilinogen NEG Urine Leukocyte Esterase NEG Urine WBC (Auto) 1-5 /hpf Urine RBC (Auto) 0-4 /hpf Urine Hyaline Casts (Auto) /lpf Urine Epithelial Cells (Auto) >30 /lpf Urine Bacteria (Auto) NEG Urine Renal Epithelial Cells /lpf Urine Pathogenic Casts /lpf Urine Mucus PRESENT Sodium Level 138 mmol/L Potassium Level 3.6 mmol/L Chloride Level 102 mmol/L Carbon Dioxide Level 29 mmol/L Anion Gap 7.0 mmol/L Blood Urea Nitrogen 11 mg/dl Creatinine 0.95 mg/dl Est Creatinine Clear Calc Drug Dose 140.9 ml/min Estimated GFR () 124.9 Estimated GFR (Non- 107.7 BUN/Creatinine Ratio 11.1 Random Glucose 106 mg/dl Calcium Level 9.3 mg/dl Total Bilirubin 1.1 mg/dl 4.4 mg/dl Direct Bilirubin 0.4 mg/dl 2.1 mg/dl Aspartate Amino Transf (AST/SGOT) 76 U/L 304 U/L Alanine Aminotransferase (ALT/SGPT) 61 U/L 361 U/L Alkaline Phosphatase 89 U/L 114 U/L Total Protein 7.7 gm/dl 7.1 gm/dl Albumin 4.1 gm/dl 3.7 gm/dl Lipase 140 U/L Assessment and Plan 31 y/o M -without anymedical history. presented with RUQ pain for one week. He developed eleveated liver enzymes consistent with extrinsic obstruction of hepatic duct and Choledocholithiasis ERCP performed revealed obstructing stones and purulence Choledocholithiasis, started on Zosyn, follow serial labs, and hydrate Full code - SCDs
[2017-07-25] MEDS: PIPERACILL/TAZOBAC IV 3.375 GM in DEXTROSE 5% 100ML 100 ML IV SCH (21:55)
[2017-07-25 23:11] VITALS: BP 104/66; PULSE 64; TEMP 36.6; O2SAT 97
[2017-07-26] MEDS: PIPERACILL/TAZOBAC IV 3.375 GM in DEXTROSE 5% 100ML 100 ML IV SCH (05:28)
[2017-07-26 07:20] VITALS: BP 114/61; PULSE 82; TEMP 36.9; O2SAT 97
--- NOTE | 2017-07-26 08:13 | Anesthesiology Progress Note ---
Anesthesia Post Op Note Date & Time Jul 26, 2017 at 08:13 Vital Signs Pain Intensity: 0.0 Vital Signs Past 12 Hours Date Time Temp Pulse Resp B/P (MAP) Pulse Ox O2 Delivery O2 Flow Rate FiO2 07/26/17 07:20 36.9 82 20 114/61 (78) 97 Room Air 07/26/17 00:00 Room Air 07/25/17 23:11 36.6 64 18 104/66 (79) 97 Room Air Notes Mental Status: alert / awake / arousable, participated in evaluation Pt Amnestic to Procedure: Yes Nausea / Vomiting: adequately controlled Pain: adequately controlled Airway Patency, RR, SpO2: stable & adequate BP & HR: stable & adequate Hydration State: stable & adequate Anesthetic Complications: no major complications apparent
--- NOTE | 2017-07-26 09:30 | Surgery Consultation ---
Consultation Date of Consultation: Jul 26, 2017. Attending Physician: Arthur Corona M.D. Reason for Consultation: Choledocholithiasis, cholangitis, status post ERCP yesterday, discussion of cholecystectomy History of Present Illness Mandeep is a pleasant 31-year-old male who underwent ERCP yesterday by Dr. Sahu for presumed choledocholithiasis. He presented to the emergency room on July 24 with about a one-week history of right upper quadrant abdominal pain with associated nausea vomiting and diarrhea. This seemed to resolve and then suddenly had an onset of epigastric abdominal pain. No nausea or vomiting. The workup in the ER included labs which showed no leukocytosis, total bilirubin was slightly elevated at 1.1, and AST slightly elevated. Ultrasound showed evidence of gallstones and sludge however no evidence of acute cholecystitis: no gall gallbladder wall thickening or pericholecystic cystic fluid. Common bile duct was slightly dilated at 8 mm with questionable stones versus sludge in the duct. At the time of evaluation most of his pain had resolved. He was admitted to the medical service and GI service was consulted for possible ERCP. Patient underwent ERCP yesterday by Dr. Sahu. Was found to have multiple stones in the common bile duct with evidence of pus concerning for cholangitis. A common bile duct stent as well as a pancreatic stent was placed. Our services were consulted for discussion of laparoscopic cholecystectomy with patient. Today patient states he is doing well. Is having mild epigastric abdominal pain sharp in nature which comes and goes. The pain prior to admission has completely resolved. Tolerated clear liquids for breakfast. Patient states there is family history of gallbladder disease. No significant past medical history. Past Medical/Surgical History No significant past medical history No surgical history Family History FH: gallbladder disease Heart disease Hypertension Social History Smoking Status: Unknown if Ever Smoked Smokeless Tobacco Use: No Drug Use: none Marital Status: single Housing Status: lives with roommate Occupation Status: employed Allergies Coded Allergies: No Known Allergies (Unverified , 07/24/17) Home Medications No Active Prescriptions or Reported Meds Current Inpatient Medications Current Inpatient Medications Medications (Trade) Dose Ordered Sig/Cullen Route Start Time Stop Time Status Last Admin Dose Admin Ondansetron HCl (Zofran Inj) 4 mg Q6H PRN IV 07/24/17 22:15 08/23/17 22:14 Morphine Sulfate (MoRPHine SULFATE INJ) 2 mg Q3H PRN IV 07/24/17 22:30 08/07/17 22:29 Miscellaneous (Iv Fluids Completed) 1 ea PRN PRN N/A 07/24/17 23:00 07/24/18 22:59 Hydromorphone HCl (Dilaudid Inj) 0.5 mg Q5M PRN IV 07/25/17 13:15 07/26/17 18:15 Piperacillin Sod/ Tazobactam Sod 3.375 gm/Dextrose 115 ml @ 28.75 mls/ hr Q8 IV 07/25/17 22:00 08/04/17 21:59 07/26/17 05:28 28.75 MLS/HR Miscellaneous Information (Consult) 1 ea UD PRN N/A 07/25/17 14:45 08/24/17 14:44 Review of Systems Constitutional: No fever, No chills, No sweats Respiratory: No shortness of breath Cardiovascular: No chest pain Abdomen: + pain (epigatric pain), No nausea, No vomiting Genitourinary - Male: No hematuria, No dysuria Hematologic / Lymphatic: No abnormal bleeding/bruising Integumentary: No rash Physical Exam Date Time Temp Pulse Resp B/P (MAP) Pulse Ox O2 Delivery O2 Flow Rate FiO2 07/26/17 08:00 Room Air 07/26/17 07:20 36.9 82 20 114/61 (78) 97 Room Air 07/26/17 00:00 Room Air 07/25/17 23:11 36.6 64 18 104/66 (79) 97 Room Air 07/25/17 20:00 Room Air 07/25/17 16:57 36.9 72 18 124/80 (95) 96 Room Air 07/25/17 16:09 37.0 77 18 138/82 (100) 97 Room Air 07/25/17 16:00 Room Air 07/25/17 15:20 80 14 135/84 96 Room Air 07/25/17 15:10 88 16 138/80 96 Room Air 07/25/17 15:00 37.2 89 14 133/91 100 Room Air 07/25/17 14:50 103 20 140/87 100 Oxymask 10 07/25/17 14:43 37.5 102 16 149/85 100 Oxymask 10 General Appearance: WD/WN, no apparent distress, + thin Head: normocephalic, atraumatic Eyes: + pertinent finding (icteric) ENT: hearing grossly normal Neck: trachea midline Respiratory/Chest: lungs clear, normal breath sounds, no respiratory distress, no accessory muscle use Cardiovascular: regular rate, rhythm, no murmur Abdomen/GI: normal bowel sounds, non tender, soft, no organomegaly, no pulsatile mass Back: normal inspection Extremities/Musculoskelatal: normal inspection Neurologic/Psych: alert, normal mood/affect, oriented x 3 Skin: normal color, warm/dry, no rash Lymphatic: no adenopathy Laboratory Results GALLBLADDER-ABD LIMITED CLINICAL HISTORY: 31 years-old Male presenting with abd pain . TECHNIQUE: Real-time grayscale and limited color Doppler ultrasound imaging of the abdomen limited to the right upper quadrant was performed. COMPARISON: None. FINDINGS: Pancreas: Visualized portions of the pancreatic head and body normal. Liver: Normal echogenicity and echotexture. The liver measures 17.5 cm in maximal sagittal dimension. No sonographic evidence of hepatic mass. Main portal vein patent with normal directional flow. Biliary: No intrahepatic biliary ductal dilatation. Common bile duct measures up to 8 mm in diameter and may contain hypoechoic echogenic debris. Gallbladder: Gallstones without evidence of gallbladder distention, wall thickening, or pericholecystic fluid or inflammatory change. Right kidney: Normal in appearance. No hydronephrosis. Ascites: None. IMPRESSION: Cholelithiasis and extrahepatic biliary ductal dilatation with possible common duct sludge or calculi. No evidence of cholecystitis. MRCP IMPRESSION: 1. Intrahepatic and extrahepatic biliary ductal dilatation without evidence of choledocholithiasis. This may be due to a recently passed stone. Trace periduodenal free fluid also could suggest a recently passed stone. 2. Cholelithiasis. Gallbladder wall thickening without convincing evidence of cholecystitis. If there is clinical concern for this diagnosis, HIDA scan could be obtained. Assessment & Plan 31-year-old male who was admitted on July 24 for sudden epigastric abdominal pain in the setting of 1 week history of right upper quadrant abdominal pain with nausea vomiting and diarrhea. Ultrasound showed evidence of gallstones and sludge with possible choledocholithiasis. Patient underwent ERCP yesterday with evidence of common bile duct stones and cholangitis. Abdominal pain has mostly resolved. Abdominal examination today benign, no tenderness. Plan: We will obtain a set of labs this morning CBC CMP and lipase Given evidence of gallstones and sludge with evidence of choledocholithiasis and cholangitis, discussed with patient the need for laparoscopic cholecystectomy. Since patient is mostly asymptomatic at this time, discussed with patient the option of elective outpatient cholecystectomy. He is healthy and no other comorbidities. He would be a prime candidate for cholecystectomy at our surgery center. Patient should follow-up with our office next week to schedule cholecystectomy. may advance diet as tolerated to low fat diet, encourage patient low fat diet in the next few weeks until cholecystectomy As per GI recommendations: 2 week course of broad-spectrum antibiotics, avoid NSAIDs for 1 week, removal of common bile duct stent and pancreatic stent in 6 weeks. Continue current medical management Dr. German has seen patient, agrees with above
[2017-07-26 10:44] LABS: HEMATOCRIT 40.9 % (42-52); HEMOGLOBIN 14.2 g/dL (14.0-18.0); MEAN CELL VOLUME 86.5 fL (80-100); MEAN CORPUSCULAR HGB CONC 34.7 g/dl (32-36); MEAN PLATELET VOLUME 10.6 fL (7.4-10.4); PLATELET COUNT 251 K/uL (130-400); RED CELL DISTRIBUTION WIDTH CV 12.3 % (11.5-14.5); RED CELL DISTRIBUTION WIDTH SD 39.5 fL (36.4-46.3); WHITE BLOOD COUNT 5.71 K/uL (4.8-10.8)
[2017-07-26] MEDS ORDERED: AMOX875T PO (10:47)
--- NOTE | 2017-07-26 10:52 | Discharge Instructions ---
Discharge Instructions Date of Service Jul 26, 2017. Admission Reason for Admission: Biliary Obstruction Discharge Discharge Diagnosis / Problem: Gallstones Discharge Goals Goal(s): Decrease discomfort, Improve function, Increase independence, Improve disease control Activity Recommendations Activity Limitations: resume your previous activity Lifting Limitations: none Exercise/Sports Limitations: none May Resume Sexual Activity: when tolerated Shower/Bathe: no limitations Driving or Machine Use: no limitations . Instructions / Follow-Up Instructions / Follow-Up You were admitted to [facility] with abdominal pain and diagnosed with choledocholithiasis (gallstones). During your stay here you were treated with intravenous pain medication and antibiotics. You underwent a MRCP procedure on 07/25 and biliary stents were placed. You will need to follow up with Gastroenterology within 1 month to discuss removal of these stents. . Medications: Continue taking Augmentin twice daily for 6 more days starting tonight, to complete a 7 day course of antibiotics. Finish the course on 08/01. Appointments: Follow up with your Primary Care Provider within 1 week. Follow up with Gastroenterology within 1 month, an appointment has been requested for you. Current Hospital Diet Patient's current hospital diet: Regular Diet Discharge Diet Recommended Diet: Regular Diet Procedures Procedures Performed: Endoscopic Retrograde Cholangiopancreatography with gall stone extraction billiary stent placement, pancreatic stent placement Pending Studies Studies pending at discharge: no Medical Emergencies . Who to Call and When: Medical Emergencies: If at any time you feel your situation is an emergency, please call 911 immediately. . Non-Emergent Contact Non-Emergency issues call your: Primary Care Provider Call Non-Emergent contact if: you have a fever, temperature is above 100.5, your pain is not controlled, your pain is worsening, your pain is unusual for you, your pain is concerning you, you have any medication questions other concerns with your health. Call 911 or go directly to the Emergency Department if you experience any of the following: Chest pain, chest tightness, shortness of breath, abdominal pain , lightheadedness, dizziness, gastrointestinal bleeding, or have any other concerns regarding your health. . Past History Medical & Surgical History: (1) Choledocholithiasis (2) Biliary obstruction . "Provider Documentation" section prepared by Meghna Jones. . VTE Core Measure Inpt VTE Proph given/why not?: SCD's
--- NOTE | 2017-07-26 10:58 | Consultant Recommendations ---
Materials Planning Manager Recommendations Date of Service Jul 26, 2017. Materials Planning Manager Recommendations Follow-up [facility] surgical office on Sunday with Dr. German. Please call office at [phone] to make an appointment. Low fat diet up until gallbladder removal
[2017-07-26 11:14] VITALS: BP 114/61; PULSE 82; TEMP 36.9; O2SAT 97
[2017-07-26 11:14] LABS: ALBUMIN 3.5 gm/dl (3.4-5.0); CREATININE 0.95 mg/dl (0.60-1.40); POTASSIUM 3.6 mmol/L (3.5-5.1); TOTAL PROTEIN 6.6 gm/dl (6.4-8.2)
--- NOTE | 2017-07-26 12:41 | Gastroenterology Progress Note ---
Progress Note Date of Service: Jul 26, 2017 Subjective Pt evaluation today including: conversation w/ patient, physical exam, chart review, lab review, review of studies, review of inpatient medication list Mr. Dykes is a 31 yr old male who underwent ERCP yesterday with sphincterotomy and findings of choledocholithiasis (swept). Today, he feels well, taking clear liquids well. Denies any abdominal pain. T bili increased from 1.1 on arrival, 4.4 yesterday to 6.1 today. Transaminases improved. AST yesterday was 304 (today 111); ALT yesterday was 361(today 124). Review of Systems Constitutional: No fever ENT: No hearing loss Respiratory: No cough Cardiac: No chest pain Abdomen: No pain, No nausea, No vomiting, No diarrhea Musculoskeletal: No joint pain Male : No dysuria Neuro: No memory loss Psych: No depression symptoms Heme: No abnormal bleeding/bruising Endo: No fatigue Skin: No rash Medications Current Inpatient Medications Medications (Trade) Dose Ordered Sig/Cullen Route Start Time Stop Time Status Last Admin Dose Admin Ondansetron HCl (Zofran Inj) 4 mg Q6H PRN IV 07/24/17 22:15 08/23/17 22:14 Morphine Sulfate (MoRPHine SULFATE INJ) 2 mg Q3H PRN IV 07/24/17 22:30 08/07/17 22:29 Miscellaneous (Iv Fluids Completed) 1 ea PRN PRN N/A 07/24/17 23:00 07/24/18 22:59 Hydromorphone HCl (Dilaudid Inj) 0.5 mg Q5M PRN IV 07/25/17 13:15 07/26/17 18:15 Piperacillin Sod/ Tazobactam Sod 3.375 gm/Dextrose 115 ml @ 28.75 mls/ hr Q8 IV 07/25/17 22:00 08/04/17 21:59 07/26/17 05:28 28.75 MLS/HR Miscellaneous Information (Consult) 1 ea UD PRN N/A 07/25/17 14:45 08/24/17 14:44 Objective Vital Signs Date Time Temp Pulse Resp B/P (MAP) Pulse Ox O2 Delivery O2 Flow Rate FiO2 07/26/17 11:14 36.9 82 20 97 Room Air 07/26/17 08:00 Room Air 2/15/18 07:20 36.9 82 20 114/61 (78) 97 Room Air 07/26/17 00:00 Room Air 07/25/17 23:11 36.6 64 18 104/66 (79) 97 Room Air 07/25/17 20:00 Room Air 07/25/17 16:57 36.9 72 18 124/80 (95) 96 Room Air 07/25/17 16:09 37.0 77 18 138/82 (100) 97 Room Air 07/25/17 16:00 Room Air 07/25/17 15:20 80 14 135/84 96 Room Air 07/25/17 15:10 88 16 138/80 96 Room Air 07/25/17 15:00 37.2 89 14 133/91 100 Room Air 07/25/17 14:50 103 20 140/87 100 Oxymask 10 07/25/17 14:43 37.5 102 16 149/85 100 Oxymask 10 Physical Exam General Appearance: no apparent distress Neck: no JVD Respiratory/Chest: lungs clear Cardiovascular: regular rate, rhythm, no edema, no murmur Abdomen: non tender, soft Extremities: non-tender Neurologic/Psych: alert, normal mood/affect, oriented x 3 Skin: no jaundice Laboratory Results Last 24 Hours Test 07/26/17 10:14 White Blood Count 5.71 K/uL Red Blood Count 4.73 M/uL Hemoglobin 14.2 g/dL Hematocrit 40.9 % Mean Corpuscular Volume 86.5 fL Mean Corpuscular Hemoglobin 30.0 pg Mean Corpuscular Hemoglobin Concent 34.7 g/dl RDW Standard Deviation 39.5 fL RDW Coefficient of Variation 12.3 % Platelet Count 251 K/uL Mean Platelet Volume 10.6 fL Sodium Level 140 mmol/L Potassium Level 3.6 mmol/L Chloride Level 106 mmol/L Carbon Dioxide Level 27 mmol/L Anion Gap 7.0 mmol/L Blood Urea Nitrogen 7 mg/dl Creatinine 0.95 mg/dl Est Creatinine Clear Calc Drug Dose 140.9 ml/min Estimated GFR () 124.9 Estimated GFR (Non- 107.7 BUN/Creatinine Ratio 6.8 Random Glucose 94 mg/dl Calcium Level 9.0 mg/dl Total Bilirubin 6.1 mg/dl Aspartate Amino Transf (AST/SGOT) 111 U/L Alanine Aminotransferase (ALT/SGPT) 260 U/L Alkaline Phosphatase 124 U/L Total Protein 6.6 gm/dl Albumin 3.5 gm/dl Globulin 3.1 gm/dl Albumin/Globulin Ratio 1.1 Lipase 359 U/L Assessment and Plan Mr. Dykes is a 31 yr old male who is S/P ERCP for choledocholithiasis/ cholangitis. He feels well, but T bili is elevated. Plan: 1. Will check direct bilirubin. 2. Regular consistency low fat diet. 3. Discussed with Dr. Zay Sahu who prefers that he receive one more day of IV antibiotics then OP PO Cipro for a total of 2 weeks of antibiotics. Discussed with Dr. Cochran. I have seen , examined and agree with the plan as outlined by PEG Webster as above. -exam reveals soft abd -Follow LFT's
[2017-07-26] MEDS ORDERED: CPR500 PO (13:36)
--- NOTE | 2017-07-26 15:37 | Discharge Summary ---
Discharge Summary Date of Service Jul 26, 2017. Discharge Summary Admission Date: Jul 24, 2017 at 22:17 Discharge Date: Jul 26, 2017 Discharge Disposition: Home Principal Diagnosis: Choledocolithiasis Problems/Secondary Diagnoses: None Procedures: GALLBLADDER-ABD LIMITED 07/24/17 IMPRESSION: Cholelithiasis and extrahepatic biliary ductal dilatation with possible common duct sludge or calculi. No evidence of cholecystitis. ERCP 07/25/17 Impression: - The major papilla appeared congested. - Biliary papillary stenosis, benign. - Choledocholithiasis and evidence of cholangitis was found. Complete removal was accomplished by biliary sphincterotomy and balloon extraction. - A biliary sphincterotomy was performed. - One prophylactic pancreatic stent was placed into the ventral pancreatic duct. - One biliary stent was placed into the common bile duct. - Indomethacin given to decrease risk of post-ERCP pancreatitis. Recommendation: - [facility] - Use broad spectrum antibiotics for 2 weeks. - Repeat ERCP in 6 weeks to remove stent. ERCP BILIARY DUCTAL 07/25/17 IMPRESSION: Fluoroscopy provided for an intraoperative cholangiogram. Suspected filling defect in the common bile duct subsequently cleared. Placement of a common bile duct stent. MRCP 07/25/17 IMPRESSION: 1. Intrahepatic and extrahepatic biliary ductal dilatation without evidence of choledocholithiasis. This may be due to a recently passed stone. Trace periduodenal free fluid also could suggest a recently passed stone. 2. Cholelithiasis. Gallbladder wall thickening without convincing evidence of cholecystitis. If there is clinical concern for this diagnosis, HIDA scan could be obtained. Consultations: GI Medication Reconciliation New Medications: Ciprofloxacin (Ciprofloxacin HCl) 500 Mg Tab 500 MG PO BID for 13 Days, #26 TAB Discharge Exam The patient was seen and examined this morning. Pt reports doing well today. He has no abdominal pain at all. Pt reports passing gas but not yet having bowel movements. He had clear liquid diet for breakfast without any difficulty. He was ordered a regular diet for lunch and tolerated without any difficulty. He denies any nausea, vomiting. ROS: Constitutional: No fever, sweats or chills Eyes: No diplopia, no worsening or blurred vision ENT: normal hearing, no trouble swallowing Respiratory: No cough, sputum, dyspnea at rest or on exertion Cardiovascular: No chest pain, tightness or palpitations Abdomen: No pain, nausea, vomiting, diarrhea or constipation Musculoskeletal: No joint pain, calf pain, swelling Neurologic: No weakness, numbness/tingling, or balance problems Psychiatric: No anxiety or depression Skin: No rash or itch PE: General: awake, alert, no apparent distress Head: Normocephalic, atraumatic ENT: PERRL, EOMI, no pharyngeal exudate, mucous membranes moist Chest: Clear to auscultation, on room air, no adventitious breath sounds Cardiac: Regular rate and rhythm, no murmur, no JVD, normal peripheral pulses, good capillary refill Abdominal: NABS x 4 quadrants, soft, nontender to palpation, no rebound, guarding or tenderness Extremities: Normal inspection, no peripheral edema or erythema, calfs nontender to palpation Psych: Normal mood and affect Neuro: AAO x 3, strength intact bilaterally and related 5/5, no motor deficits, speech is clear, no peripheral sensory deficits Hospital Course 31 y/o M -without anymedical history. presented with RUQ pain for one week. He developed eleveated liver enzymes consistent with extrinsic obstruction of hepatic duct and Choledocholithiasis ERCP performed revealed obstructing stones and purulence Choledocholithiasis -Patient is status post MRCP with common biliary duct stent placement on 07/25. He was treated with IV Zosyn. -The patient was asymptomatic following the stent placement. He was able to tolerate a regular diet without any nausea or vomiting, or abdominal pain. - LFTs this morning were slightly more elevated however due to absent symptoms the patient was discharged to home - LFTS should be rechecked at GI f/u within 1 week. Continue Cipro 500 mg BID for another 13 days to complete a 14 day course per GIs recs. - He was given the phone number for follow-up appointment with gastroenterology within 1 week. -Patient has also been provided information regarding [facility] and appointment follow up there due to no insurance. Full code - SCDs, ambulatory PA Physician Supervision Note: I interviewed and examined the patient. Discussed with Diamond Jones PAC and agree with findings and plan as documented in the note. Any exceptions or clarifications are listed here: None Patient was without pain or discomfort after his endoscopy and ERCP with stone retrieval he is tolerating a full diet requested to be discharged home there was some discussion about keeping him for an additional day however the patient does have some monetary restrictions of insurance and requests to be released. The patient was released after tolerating his lunch diet without discomfort to complete a course of ciprofloxacin therapy as an outpatient follow-up with outpatient labs and gastroenterology Documented By: Darin Cochran Total Time Spent: Greater than 30 minutes This includes examination of the patient, discharge planning, medication reconciliation, and communication with other providers. Discharge Instructions Please refer to the electronic Patient Visit Report (Discharge Instructions) for additional information. Follow-Up Follow up with your Primary Care Provider within 1 week - [facility] phone number has been provided to the patient Follow-up with gastroenterology within 1 week.
== END 2017-07-26 13:13 | disposition home or self-care (01) ==
LOC: C.EDB 19:26 → C.MS2W 22:17 → ENRESERV 23:09
PROVIDERS: ADMIT Internal Medicine; ATTEND Internal Medicine
DX: K80.50 Calculus of bile duct without cholangitis or cholecystitis without obstruction (principal); R03.0 Elevated blood-pressure reading, without diagnosis of hypertension; Z82.49 Family history of ischemic heart disease and other diseases of the circulatory system

== ENCOUNTER 2017-08-05 15:15 | Inpatient (IN) | payer SELFPAY ==
[~2017-08-05] VITALS: Ht 182.9 cm; Wt 94.3 kg
[~2017-08-05 15:15] MED LIST: CPR500 PO
[2017-08-05] MEDS ORDERED: SODIUM CHLORIDE 0.9% 1000ML 1,000 ML IV STA ×2 (15:37)
[2017-08-05] MEDS ORDERED: KETOROLAC TROMETHAMINE 30 MG/ML VIAL IV STA (15:49)
[2017-08-05 15:52] LABS: BASO % 0.2 %; BASO ABS # 0.02 K/uL (0-0.2); EOS % 0.2 %; EOS ABS # 0.02 K/uL (0-0.5); HEMATOCRIT 44.1 % (42-52); IG# 0.02 K/uL (0.00-0.02); LYMPH % 7.1 %; LYMPH ABS # 0.84 K/uL (1.2-3.4); MEAN CELL VOLUME 83.7 fL (80-100); MEAN CORPUSCULAR HEMOGLOBIN 30.4 pg (25-34); MEAN CORPUSCULAR HGB CONC 36.3 g/dl (32-36); MEAN PLATELET VOLUME 10.5 fL (7.4-10.4); MONO % 6.8 %; NEUT % 85.5 %; NEUT ABS # 10.08 K/uL (1.4-6.5); PLATELET COUNT 303 K/uL (130-400); RED CELL DISTRIBUTION WIDTH CV 12.2 % (11.5-14.5); RED CELL DISTRIBUTION WIDTH SD 36.9 fL (36.4-46.3); WHITE BLOOD COUNT 11.78 K/uL (4.8-10.8)
[2017-08-05 16:13] LABS: ALBUMIN 4.5 gm/dl (3.4-5.0); CALCIUM 9.5 mg/dl (8.5-10.1); CREATININE 1.11 mg/dl (0.60-1.40); POTASSIUM 3.3 mmol/L (3.5-5.1)
[2017-08-05 16:21] LABS: TOTAL PROTEIN 8.1 gm/dl (6.4-8.2)
--- NOTE | 2017-08-05 16:26 | EMERGENCY ROOM VISIT NOTE ---
History Report prepared by Jann: Virginia Hidalgo Under the Supervision of: Dr. Vince Ridley M.D. First contact with patient: 15:32 Chief Complaint: ABDOMINAL PAIN Stated Complaint: ABDOMINAL PAIN, POTENTIAL GALL STONES, BLOCKAGE History of Present Illness The patient is a 31 year old male who presents to the Emergency Room with complaints of constant abdominal pain beginning last night. Presently, the patient rates his pain as a 4/10. He notes some nausea and chills. The patient had a stent put in between his pancreas and gallbladder a week ago for a stone in gall bladder duct. The patient states his pain is similar to the pain he had with the gallstone. The patient is currently on Cipro. The patient was scheduled to have his gallbladder removed two days ago but states he had to postpone it because he doesn't have medical insurance. Pt denies LOC, headache, fevers, diaphoresis, visual changes, neck pain, chest pain, breathing difficulties, vomiting, back pain, melena, hematochezia, urinary symptoms, numbness, weakness, lymphadenopathy, rash, or other complaints. Source of History: patient Onset: last night Position: abdomen Symptom Intensity: 4/10 Quality: other (pain) Timing: constant Associated Symptoms: + chills, + nausea, + abdominal pain Review of Systems See HPI for pertinent positives and negatives. A total of ten systems were reviewed and were otherwise negative. Past Medical & Surgical Medical Problems: (1) Acute cholecystitis (2) Biliary obstruction (3) No known problems Family History FH: gallbladder disease Heart disease Hypertension Social History Smoking Status: Never Smoker Alcohol Use: none Drug Use: none Marital Status: single Housing Status: lives with roommate Occupation Status: employed Current/Historical Medications Scheduled Ciprofloxacin (Ciprofloxacin HCl), 500 MG PO BID Allergies Coded Allergies: No Known Allergies (Unverified , 08/05/17) Physical Exam Vital Signs Date Time Temp Pulse Resp B/P (MAP) Pulse Ox O2 Delivery O2 Flow Rate FiO2 08/05/17 17:52 100 Room Air 08/05/17 17:14 105 120/75 100 Room Air 08/05/17 16:12 58 08/05/17 15:25 36.5 97 20 117/72 100 Room Air Physical Exam GENERAL: Awake, alert, uncomfortable-appearing, in no distress HENT: Normocephalic, atraumatic. Oropharynx unremarkable. EYES: Normal conjunctiva. Sclera non-icteric. NECK: Supple. No nuchal rigidity. FROM. No masses. RESPIRATORY: Clear to auscultation. No wheezes. CARDIAC: Normal rate. Normal rhythm. No murmurs. No rubs. Extremities warm and well perfused. Pulses equal. No JVD. GI: Soft, non-distended. RUQ tenderness to palpation. No rebound or guarding. No masses. RECTAL: Deferred. MUSCULOSKELETAL: Atraumatic. Chest examination reveals no tenderness. The back is symmetrical on inspection without obvious abnormality. There is no CVA tenderness to palpation. No joint edema. LOWER EXTREMITIES: Calves are equal size bilaterally and non-tender. No edema. No discoloration. NEURO: Normal sensorium. No sensory or motor deficits noted. SKIN: No rash or jaundice noted. Medical Decision & Procedures ER Provider Diagnostic Interpretation: Radiology results as stated below per my review and radiologist interpretation: CT OF THE ABDOMEN AND PELVIS WITH CONTRAST FINDINGS: Lung bases are clear with the exception of subsegmental atelectasis. The liver is unremarkable with exception of minimal pneumobilia. The spleen, adrenal glands, right kidney and pancreas are normal. There is an intermediate attenuation 1.4 cm lesion arising from the midpole of the left kidney. There is no hydronephrosis. Biliary and pancreatic ductal stents are probably position. There is no biliary or pancreatic ductal dilatation. There is no peripancreatic infiltration. Moderate pericholecystic infiltration is increased since MRCP of July 25, 2017. The appendix is normal. No bowel obstruction. There is no lymphadenopathy. There are no suspicious osseous lesions. IMPRESSION: 1. Moderate pericholecystic infiltration with prominent mucosal enhancement of the gallbladder. The infiltration is increased since MRCP of July 25, 2017 and favors acute cholecystitis. Findings discussed with Dr. Ridley at time of dictation. 2. Indeterminate 1.4 cm left renal lesion. This may reflect a solid renal lesion or complex cyst. A follow-up nonemergent renal protocol MRI is recommended. 3. Minimal pneumobilia presumably from recent sphincterotomy. No biliary or pancreatic ductal dilatation with biliary or pancreatic stents in place. Electronically signed by: Lan Mejia M.D. Laboratory Results 08/05/17 15:43 Red Blood Count 5.27, Mean Corpuscular Volume 83.7, Mean Corpuscular Hemoglobin 30.4, Mean Corpuscular Hemoglobin Concent 36.3, Mean Platelet Volume 10.5, Neutrophils (%) (Auto) 85.5, Lymphocytes (%) (Auto) 7.1, Monocytes (%) (Auto) 6.8, Eosinophils (%) (Auto) 0.2, Basophils (%) (Auto) 0.2, Neutrophils # (Auto) 10.08, Lymphocytes # (Auto) 0.84, Monocytes # (Auto) 0.80, Eosinophils # (Auto) 0.02, Basophils # (Auto) 0.02 08/05/17 15:43 Test 08/05/17 15:43 White Blood Count 11.78 K/uL (4.8-10.8) Red Blood Count 5.27 M/uL (4.7-6.1) Hemoglobin 16.0 g/dL (14.0-18.0) Hematocrit 44.1 % (42-52) Mean Corpuscular Volume 83.7 fL (80-100) Mean Corpuscular Hemoglobin 30.4 pg (25-34) Mean Corpuscular Hemoglobin Concent 36.3 g/dl (32-36) Platelet Count 303 K/uL (130-400) Mean Platelet Volume 10.5 fL (7.4-10.4) Neutrophils (%) (Auto) 85.5 % Lymphocytes (%) (Auto) 7.1 % Monocytes (%) (Auto) 6.8 % Eosinophils (%) (Auto) 0.2 % Basophils (%) (Auto) 0.2 % Neutrophils # (Auto) 10.08 K/uL (1.4-6.5) Lymphocytes # (Auto) 0.84 K/uL (1.2-3.4) Monocytes # (Auto) 0.80 K/uL (0.11-0.59) Eosinophils # (Auto) 0.02 K/uL (0-0.5) Basophils # (Auto) 0.02 K/uL (0-0.2) RDW Standard Deviation 36.9 fL (36.4-46.3) RDW Coefficient of Variation 12.2 % (11.5-14.5) Immature Granulocyte % (Auto) 0.2 % Immature Granulocyte # (Auto) 0.02 K/uL (0.00-0.02) Anion Gap 13.0 mmol/L (3-11) Est Creatinine Clear Calc Drug Dose 117.1 ml/min Estimated GFR () 103.4 Estimated GFR (Non- 89.3 BUN/Creatinine Ratio 4.6 (10-20) Calcium Level 9.5 mg/dl (8.5-10.1) Total Bilirubin 1.4 mg/dl (0.2-1) Direct Bilirubin 0.4 mg/dl (0-0.2) Aspartate Amino Transf (AST/SGOT) 17 U/L (15-37) Alanine Aminotransferase (ALT/SGPT) 56 U/L (12-78) Alkaline Phosphatase 109 U/L (45-117) Total Protein 8.1 gm/dl (6.4-8.2) Albumin 4.5 gm/dl (3.4-5.0) Lipase 218 U/L (73-393) Laboratory results reviewed by me Medications Administered Medications (Trade) Dose Ordered Sig/Cullen Route Start Time Stop Time Status Last Admin Dose Admin Sodium Chloride 1,000 ml @ 999 mls/hr Q1H1M STAT IV 08/05/17 15:37 08/05/17 16:37 DC 08/05/17 15:37 999 MLS/HR Sodium Chloride 1,000 ml @ 125 mls/hr Q8H STAT IV 08/05/17 15:37 08/05/17 23:36 08/05/17 15:37 125 MLS/HR Ketorolac Tromethamine (Toradol Inj) 15 mg NOW STAT IV 08/05/17 15:49 08/05/17 15:53 DC 08/05/17 15:54 15 MG ED Course 1534: The patient was evaluated in room C11B. A complete history and physical exam was performed. 1537: Ordered Sodium Chloride 1000 ml @ 125 mls/hr IV, Sodium Chloride 1000 ml @ 999 mls/hr IV. 1549: Ordered Toradol Inj 15 mg IV. 1705: Dr. Mejia called about the patient's CT. Its findings show cholecystitis. 1728: Discussed the patient's case with Dr. Martinez-General Surgery. The patient will be evaluated for further treatment and disposition. 1733: I updated the patient on the treatment plan. He is agreeable. Medical Decision Triage Nursing notes reviewed. The patient's presentation and history were concerning for abdominal pain and recent ERCP. Etiologies such as biliary pathology, pancreatitis, appendicitis, diverticulitis , obstruction, inflammatory bowel disease, renal colic, PUD, mesenteric ischemia, aortic pathology, infections, genitourinary, UTI, perforated viscus, as well as others were entertained. The patient was evaluated. Clinically he was doing well but did have tenderness and right upper quadrant. Initially declined analgesia but asked for something mild. He was given 15mg of Toradol. Normal saline hydration was administered. The patient had a mild leukocytosis on CBC. Chem panel was unremarkable. LFTs revealed mild elevation of bilirubin function. Lipase normal. The patient underwent CT imaging. I reassessment the patient was feeling better as far as his pain. CT imaging was concerning for acute cholecystitis. No evidence of pancreatitis. A consultation was placed with general surgery, Dr. Jose Martinez. The case was discussed. He admitted patient for further treatment. The patient was informed about the need for outpatient kidney imaging regarding the left renal abnormality noted on CT. I gave my usual and customary discussion regarding this issue. Medication Reconcilliation Current Medication List: was personally reviewed by me Blood Pressure Screening Patient's blood pressure: Normal blood pressure Consults Time Called: 1725 Consulting Physician: Dr. Martinez-General Surgery Returned Call: [phone] Discussed the patient's case. The patient will be evaluated for further treatment and disposition. Impression Primary Impression: Acute cholecystitis Scribe Attestation The scribe's documentation has been prepared under my direction and personally reviewed by me in its entirety. I confirm that the note above accurately reflects all work, treatment, procedures, and medical decision making performed by me. Departure Information Dispostion Being Evaluated By Surgeon Referrals [facility] (PCP) Patient Instructions My [facility]
[2017-08-05] MEDS ORDERED: OPTIRAY 320 IV PRN (17:00)
--- NOTE | 2017-08-05 17:10 | DIAGNOSTIC IMAGING REPORT ---
CT OF THE ABDOMEN AND PELVIS WITH CONTRAST CLINICAL HISTORY: RUQ pain, recent ERCP for choledocholithiasis and cho lithiasis. COMPARISON STUDY: Right upper quadrant ultrasound July 24, 2017 and MRCP July 25, 2017. TECHNIQUE: Following IV administration of 116 mL of Optiray-320, axial images of the abdomen and pelvis were obtained from the lung bases to the proximal femurs. Images were reviewed in the axial, sagittal, and coronal planes. IV contrast was administered without complication. A dose lowering technique was utilized adhering to the principles of ALARA. CT DOSE: 449.60 mGy.cm FINDINGS: Lung bases are clear with the exception of subsegmental atelectasis. The liver is unremarkable with exception of minimal pneumobilia. The spleen, adrenal glands, right kidney and pancreas are normal. There is an intermediate attenuation 1.4 cm lesion arising from the midpole of the left kidney. There is no hydronephrosis. Biliary and pancreatic ductal stents are probably position. There is no biliary or pancreatic ductal dilatation. There is no peripancreatic infiltration. Moderate pericholecystic infiltration is increased since MRCP of July 25, 2017. The appendix is normal. No bowel obstruction. There is no lymphadenopathy. There are no suspicious osseous lesions. IMPRESSION: 1. Moderate pericholecystic infiltration with prominent mucosal enhancement of the gallbladder. The infiltration is increased since MRCP of July 25, 2017 and favors acute cholecystitis. Findings discussed with Dr. Ridley at time of dictation. 2. Indeterminate 1.4 cm left renal lesion. This may reflect a solid renal lesion or complex cyst. A follow-up nonemergent renal protocol MRI is recommended. 3. Minimal pneumobilia presumably from recent sphincterotomy. No biliary or pancreatic ductal dilatation with biliary or pancreatic stents in place. Electronically signed by: Lan Mejia M.D. 08/05/2017 5:09 PM Dictated Date/Time: 08/05/2017 5:00 PM
[2017-08-05] MEDS ORDERED: ZOLPIDEM TARTRATE 5 MG TAB PO PRN (17:45)
[2017-08-05] MEDS ORDERED: MAGNESIUM HYDROXIDE SUSP 30 ML UDC PO PRN (17:45)
[2017-08-05] MEDS ORDERED: ACETAMINOPHEN 325 MG TAB PO PRN (17:45)
[2017-08-05] MEDS ORDERED: MoRPHine SULFATE 2 MG/ML CARP IV PRN (17:45)
[2017-08-05] MEDS ORDERED: ONDANSETRON INJ 2 MG/ML 2 ML VIAL IV PRN (17:45)
[2017-08-05] MEDS ORDERED: ALUMINUM/MAGNESIUM/SIMETH (MAALOX MAX) 30 ML UDC PO PRN (17:45)
[2017-08-05 17:52] VITALS: O2SAT 100; Ht 182.9 cm; Wt 94.3 kg
[2017-08-05 19:02] VITALS: BP 135/90; PULSE 98; TEMP 36.7; O2SAT 96
[2017-08-05] MEDS: LACTATED RINGER'S 1000ML 1,000 ML IV SCH (19:10)
[2017-08-05] MEDS: METRONIDAZOLE / NSS 500 MG in PREMIXED NSS 100 ML IV SCH (19:30)
--- NOTE | 2017-08-05 19:54 | History and Physical ---
History & Physical Date & Time of Service: Aug 05, 2017 at 19:46 Chief Complaint: Acute Cholecystitis Primary Care Physician: No Doctor, Assigned History of Present Illness Source: patient This a 31 year old male who presents to the Emergency Room with complaints of constant abdominal pain beginning last night. He was previously hospitalized with CBD stone is s/p ERCP with stent placement. He was scheduled for outpatient lap johnathan with Dr German but did not follow through. He comes in with repeat pain and nausea/chills. The patient states his pain is similar to the pain he had with the gallstone. He denies LOC, headache, fevers, diaphoresis, visual changes, neck pain, chest pain, breathing difficulties, vomiting, back pain, melena, hematochezia, urinary symptoms, numbness, weakness, lymphadenopathy, rash, or other complaints. A CT scan shows acute cholecystitis with an elevated WBC. Past Medical/Surgical History CBD stone with ERCP and stent in place Family History FH: gallbladder disease Heart disease Hypertension Social History Smoking Status: Never Smoker Smokeless Tobacco Use: No Alcohol Use: socially Drug Use: none Marital Status: single Occupational Status: employed Allergies Coded Allergies: No Known Allergies (Unverified , 08/05/17) Home Medications Scheduled Ciprofloxacin (Ciprofloxacin HCl), 500 MG PO BID Review of Systems Constitutional: + fever, + chills, No sweats, No weight loss, No fatigue Eyes: No worsening of vision, No eye pain, No redness ENT: No hearing loss, No sore throat, No trouble swallowing Respiratory: No cough, No shortness of breath, No hemoptysis Cardiovascular: No chest pain, No edema, No palpitations Abdomen: + pain, + nausea, No vomiting, No diarrhea, No constipation, No GI bleeding Musculoskeletal: No joint pain, No muscle pain, No swelling Genitourinary - Male: No hematuria, No dysuria Neurologic: No memory loss, No numbness/tingling, No balance problems Psychiatric: No depression symptoms, No anxiety, No substance abuse Endocrine: No fatigue, No excessive urination Hematologic / Lymphatic: No abnormal bleeding/bruising, No swollen lymph nodes , No night sweats Integumentary: No rash, No new/changing skin lesions, No color change, No bleeding Allergic / Immunologic: No environmental allergies, No seasonal allergies Physical Exam Vital Signs Date Time Temp Pulse Resp B/P (MAP) Pulse Ox O2 Delivery O2 Flow Rate FiO2 08/05/17 19:02 36.7 98 16 135/90 (105) 96 Room Air 08/05/17 18:45 98 139/92 99 08/05/17 17:52 100 Room Air 08/05/17 17:14 105 120/75 100 Room Air 08/05/17 16:12 58 08/05/17 15:25 36.5 97 20 117/72 100 Room Air General Appearance: WD/WN, no apparent distress Head: normocephalic, atraumatic Eyes: normal inspection, PERRL, EOMI, sclerae normal ENT: normal ENT inspection Neck: supple, trachea midline Respiratory/Chest: chest non-tender, lungs clear Cardiovascular: regular rate, rhythm, no gallop, no murmur Abdomen/GI: normal bowel sounds, soft, no organomegaly, + tenderness (mild) Genitourinary - Male: normal male genitalia Back: normal inspection, no CVA tenderness Extremities/Musculoskelatal: normal inspection, no calf tenderness, no pedal edema Neurologic/Psych: no motor/sensory deficits, alert, normal mood/affect, oriented x 3 Skin: normal color, warm/dry, no rash Lymphatic: no adenopathy Diagnostics Laboratory Results Results Past 24 Hours Test 08/05/17 15:43 Range/Units White Blood Count 11.78 4.8-10.8 K/uL Red Blood Count 5.27 4.7-6.1 M/uL Hemoglobin 16.0 14.0-18.0 g/dL Hematocrit 44.1 42-52 % Mean Corpuscular Volume 83.7 80-100 fL Mean Corpuscular Hemoglobin 30.4 25-34 pg Mean Corpuscular Hemoglobin Concent 36.3 32-36 g/dl Platelet Count 303 130-400 K/uL Mean Platelet Volume 10.5 7.4-10.4 fL Neutrophils (%) (Auto) 85.5 % Lymphocytes (%) (Auto) 7.1 % Monocytes (%) (Auto) 6.8 % Eosinophils (%) (Auto) 0.2 % Basophils (%) (Auto) 0.2 % Neutrophils # (Auto) 10.08 1.4-6.5 K/uL Lymphocytes # (Auto) 0.84 1.2-3.4 K/uL Monocytes # (Auto) 0.80 0.11-0.59 K/uL Eosinophils # (Auto) 0.02 0-0.5 K/uL Basophils # (Auto) 0.02 0-0.2 K/uL RDW Standard Deviation 36.9 36.4-46.3 fL RDW Coefficient of Variation 12.2 11.5-14.5 % Immature Granulocyte % (Auto) 0.2 % Immature Granulocyte # (Auto) 0.02 0.00-0.02 K/uL Sodium Level 138 136-145 mmol/L Potassium Level 3.3 3.5-5.1 mmol/L Chloride Level 103 98-107 mmol/L Carbon Dioxide Level 23 21-32 mmol/L Anion Gap 13.0 3-11 mmol/L Blood Urea Nitrogen 5 7-18 mg/dl Creatinine 1.11 0.60-1.40 mg/dl Est Creatinine Clear Calc Drug Dose 117.1 ml/min Estimated GFR () 103.4 Estimated GFR (Non- 89.3 BUN/Creatinine Ratio 4.6 10-20 Random Glucose 100 70-99 mg/dl Calcium Level 9.5 8.5-10.1 mg/dl Total Bilirubin 1.4 0.2-1 mg/dl Direct Bilirubin 0.4 0-0.2 mg/dl Aspartate Amino Transf (AST/SGOT) 17 15-37 U/L Alanine Aminotransferase (ALT/SGPT) 56 12-78 U/L Alkaline Phosphatase 109 45-117 U/L Total Protein 8.1 6.4-8.2 gm/dl Albumin 4.5 3.4-5.0 gm/dl Lipase 218 73-393 U/L Diagnostic Radiology CT OF THE ABDOMEN AND PELVIS WITH CONTRAST CLINICAL HISTORY: RUQ pain, recent ERCP for choledocholithiasis and cho lithiasis. COMPARISON STUDY: Right upper quadrant ultrasound July 24, 2017 and MRCP July 25, 2017. TECHNIQUE: Following IV administration of 116 mL of Optiray-320, axial images of the abdomen and pelvis were obtained from the lung bases to the proximal femurs. Images were reviewed in the axial, sagittal, and coronal planes. IV contrast was administered without complication. A dose lowering technique was utilized adhering to the principles of ALARA. CT DOSE: 449.60 mGy.cm FINDINGS: Lung bases are clear with the exception of subsegmental atelectasis. The liver is unremarkable with exception of minimal pneumobilia. The spleen, adrenal glands, right kidney and pancreas are normal. There is an intermediate attenuation 1.4 cm lesion arising from the midpole of the left kidney. There is no hydronephrosis. Biliary and pancreatic ductal stents are probably position. There is no biliary or pancreatic ductal dilatation. There is no peripancreatic infiltration. Moderate pericholecystic infiltration is increased since MRCP of July 25, 2017. The appendix is normal. No bowel obstruction. There is no lymphadenopathy. There are no suspicious osseous lesions. IMPRESSION: 1. Moderate pericholecystic infiltration with prominent mucosal enhancement of the gallbladder. The infiltration is increased since MRCP of July 25, 2017 and favors acute cholecystitis. Findings discussed with Dr. Ridley at time of dictation. 2. Indeterminate 1.4 cm left renal lesion. This may reflect a solid renal lesion or complex cyst. A follow-up nonemergent renal protocol MRI is recommended. 3. Minimal pneumobilia presumably from recent sphincterotomy. No biliary or pancreatic ductal dilatation with biliary or pancreatic stents in place. Impression Assessment and Plan Acxute cholecystitis -IV cipro/flagyl -IVF -NPO p MN -lap johnathan in AM with Dr German ASA Classification: ASA Class I Level of Care Med/Surg Advanced Directives Existing Living Will: No Existing Power of Senior Drupal Developer: No Resuscitation Status FULL RESUSCITATION VTE Prophylaxis VTE Risk Assessment Done? Y/N: Yes Risk Level: Low Given or contraindicated: SCD's Social Service Consult None Apply
[2017-08-05] MEDS: RANITIDINE IV 50 MG in DEXTROSE 5% 100ML 100 ML IV SCH (20:52)
[2017-08-05] MEDS: CIPROFLOXACIN / D5W 400 MG in PREMIXED IN D5W 200 ML IV SCH (21:26)
[2017-08-05 23:20] VITALS: BP 135/74; PULSE 93; TEMP 37.6; O2SAT 97
[2017-08-05 23:23] VITALS: TEMP 37.2
[2017-08-06] VITALS (8 sets, daily range): BP systolic 118–147; BP diastolic 65–88; PULSE 64–88; TEMP 36.7–37.7; O2SAT 95–98
[2017-08-06] MEDS: METRONIDAZOLE / NSS 500 MG in PREMIXED NSS 100 ML IV SCH ×3 (03:05→20:59)
[2017-08-06] MEDS: RANITIDINE IV 50 MG in DEXTROSE 5% 100ML 100 ML IV SCH ×3 (04:16→19:19)
[2017-08-06 04:44] LABS: BASO % 0.3 %; BASO ABS # 0.02 K/uL (0-0.2); EOS % 0.8 %; EOS ABS # 0.06 K/uL (0-0.5); HEMATOCRIT 38.6 % (42-52); HEMOGLOBIN 13.6 g/dL (14.0-18.0); IG# 0.02 K/uL (0.00-0.02); LYMPH % 19.7 %; LYMPH ABS # 1.41 K/uL (1.2-3.4); MEAN CELL VOLUME 86.4 fL (80-100); MEAN CORPUSCULAR HEMOGLOBIN 30.4 pg (25-34); MEAN PLATELET VOLUME 10.7 fL (7.4-10.4); MONO % 12.2 %; MONO ABS # 0.87 K/uL (0.11-0.59); NEUT % 66.7 %; NEUT ABS # 4.76 K/uL (1.4-6.5); PLATELET COUNT 207 K/uL (130-400); RED CELL DISTRIBUTION WIDTH CV 12.5 % (11.5-14.5); RED CELL DISTRIBUTION WIDTH SD 39.6 fL (36.4-46.3); WHITE BLOOD COUNT 7.14 K/uL (4.8-10.8)
[2017-08-06 05:07] LABS: MEAN CORPUSCULAR HGB CONC 35.2 g/dl (32-36)
[2017-08-06 05:08] LABS: ALBUMIN 3.4 gm/dl (3.4-5.0); CALCIUM 8.5 mg/dl (8.5-10.1); CREATININE 0.97 mg/dl (0.60-1.40); POTASSIUM 3.4 mmol/L (3.5-5.1); TOTAL PROTEIN 6.4 gm/dl (6.4-8.2)
[2017-08-06] MEDS: LACTATED RINGER'S 1000ML 1,000 ML IV SCH ×2 (05:53→09:38)
[2017-08-06] MEDS ORDERED: CEFAZOLIN IV 2,000 MG in DEXTROSE 5% 50ML 50 ML IV SCH (06:00)
[2017-08-06] MEDS ORDERED: CEFAZOLIN 2000MG IV PUSH 15 ML IV SCH (06:00)
[2017-08-06] MEDS: CIPROFLOXACIN / D5W 400 MG in PREMIXED IN D5W 200 ML IV SCH ×2 (10:26→22:10)
--- NOTE | 2017-08-06 11:33 | DIAGNOSTIC IMAGING REPORT ---
ABDOMINAL ULTRASOUND, RIGHT UPPER QUADRANT HISTORY: Right upper quadrant pain. COMPARISON: CT of the abdomen and pelvis June 04, 2018, MRCP July 25, 2017 and right upper quadrant ultrasound July 24, 2017. FINDINGS: The liver is sonographically normal. There is no biliary ductal dilatation. A biliary stent is in place. Common bile duct measures 5 mm in caliber. No common bile duct calculi are identified by sonography. The pancreas is within normal limits. The pancreatic stent is not well visualized on this exam. There are stones and sludge within the gallbladder neck. Gallbladder wall thickness is at the upper limits of normal. IMPRESSION: 1. Gallstones and sludge within the gallbladder. No significant gallbladder wall thickening. A hepatobiliary scan could be obtained to evaluate for acute cholecystitis as indicated. 2. No biliary ductal dilatation. Electronically signed by: Lan Mejia M.D. 08/06/2017 11:32 AM Dictated Date/Time: 08/06/2017 11:29 AM
--- NOTE | 2017-08-06 12:31 | Surgery Progress Note ---
Surgery Progress Note Date of Service Aug 06, 2017. Subjective I saw pt at bedside, pt is still have RUQ pain, no nausea, no vomiting, no fever. Objective Vital Signs: Date Time Temp Pulse Resp B/P (MAP) Pulse Ox O2 Delivery O2 Flow Rate FiO2 08/06/17 08:09 Room Air 08/06/17 07:22 37.0 88 16 118/65 (82) 97 Room Air 08/06/17 00:30 Room Air 08/05/17 23:23 37.2 08/05/17 23:20 37.6 93 16 135/74 (94) 97 Room Air 08/05/17 19:05 Room Air 08/05/17 19:02 36.7 98 16 135/90 (105) 96 Room Air 08/05/17 18:45 98 139/92 99 08/05/17 17:52 100 Room Air 08/05/17 17:14 105 120/75 100 Room Air 08/05/17 16:12 58 08/05/17 15:25 36.5 97 20 117/72 100 Room Air General Appearance: WD/WN, + mild distress Head: normocephalic Neck: supple, thyroid normal Respiratory/Chest: chest non-tender, lungs clear Cardiovascular: regular rate, rhythm, no edema, no gallop, no JVD, no murmur Abdomen: normal bowel sounds, non distended, soft, no organomegaly, + tenderness (at RUQ) Extremities: normal range of motion, non-tender, normal inspection Laboratory Results: Results Past 24 Hours Test 08/05/17 15:43 08/05/17 20:45 08/06/17 04:35 Range/Units White Blood Count 11.78 7.14 4.8-10.8 K/uL Red Blood Count 5.27 4.47 4.7-6.1 M/uL Hemoglobin 16.0 13.6 14.0-18.0 g/dL Hematocrit 44.1 38.6 42-52 % Mean Corpuscular Volume 83.7 86.4 80-100 fL Mean Corpuscular Hemoglobin 30.4 30.4 25-34 pg Mean Corpuscular Hemoglobin Concent 36.3 35.2 32-36 g/dl Platelet Count 303 207 130-400 K/uL Mean Platelet Volume 10.5 10.7 7.4-10.4 fL Neutrophils (%) (Auto) 85.5 66.7 % Lymphocytes (%) (Auto) 7.1 19.7 % Monocytes (%) (Auto) 6.8 12.2 % Eosinophils (%) (Auto) 0.2 0.8 % Basophils (%) (Auto) 0.2 0.3 % Neutrophils # (Auto) 10.08 4.76 1.4-6.5 K/uL Lymphocytes # (Auto) 0.84 1.41 1.2-3.4 K/uL Monocytes # (Auto) 0.80 0.87 0.11-0.59 K/uL Eosinophils # (Auto) 0.02 0.06 0-0.5 K/uL Basophils # (Auto) 0.02 0.02 0-0.2 K/uL RDW Standard Deviation 36.9 39.6 36.4-46.3 fL RDW Coefficient of Variation 12.2 12.5 11.5-14.5 % Immature Granulocyte % (Auto) 0.2 0.3 % Immature Granulocyte # (Auto) 0.02 0.02 0.00-0.02 K/uL Sodium Level 138 140 136-145 mmol/L Potassium Level 3.3 3.4 3.5-5.1 mmol/L Chloride Level 103 106 98-107 mmol/L Carbon Dioxide Level 23 26 21-32 mmol/L Anion Gap 13.0 8.0 3-11 mmol/L Blood Urea Nitrogen 5 4 7-18 mg/dl Creatinine 1.11 0.97 0.60-1.40 mg/dl Est Creatinine Clear Calc Drug Dose 117.1 134.0 ml/min Estimated GFR () 103.4 121.8 Estimated GFR (Non- 89.3 105.1 BUN/Creatinine Ratio 4.6 4.6 10-20 Random Glucose 100 104 70-99 mg/dl Calcium Level 9.5 8.5 8.5-10.1 mg/dl Total Bilirubin 1.4 1.1 0.2-1 mg/dl Direct Bilirubin 0.4 0-0.2 mg/dl Aspartate Amino Transf (AST/SGOT) 17 11 15-37 U/L Alanine Aminotransferase (ALT/SGPT) 56 39 12-78 U/L Alkaline Phosphatase 109 90 45-117 U/L Total Protein 8.1 6.4 6.4-8.2 gm/dl Albumin 4.5 3.4 3.4-5.0 gm/dl Lipase 218 73-393 U/L Urine Color YELLOW Urine Appearance CLEAR CLEAR Urine pH 5.5 4.5-7.5 Urine Specific [place] > 1.045 1.000-1.030 Urine Protein NEG NEG Urine Glucose (UA) NEG NEG Urine Ketones 4+ NEG Urine Occult Blood NEG NEG Urine Nitrite NEG NEG Urine Bilirubin NEG NEG Urine Urobilinogen NEG NEG Urine Leukocyte Esterase NEG NEG Globulin 3.0 2.5-4.0 gm/dl Albumin/Globulin Ratio 1.1 0.9-2 Assessment & Plan U/S study-IMPRESSION: 1. Gallstones and sludge within the gallbladder. No significant gallbladder wall thickening. A hepatobiliary scan could be obtained to evaluate for acute cholecystitis as indicated. 2. No biliary ductal dilatation. CT scan-FINDINGS: Lung bases are clear with the exception of subsegmental atelectasis. The liver is unremarkable with exception of minimal pneumobilia. The spleen, adrenal glands, right kidney and pancreas are normal. There is an intermediate attenuation 1.4 cm lesion arising from the midpole of the left kidney. There is no hydronephrosis. Biliary and pancreatic ductal stents are probably position. There is no biliary or pancreatic ductal dilatation. There is no peripancreatic infiltration. Moderate pericholecystic infiltration is increased since MRCP of July 25, 2017. The appendix is normal. No bowel obstruction. There is no lymphadenopathy. There are no suspicious osseous lesions. IMPRESSION: 1. Moderate pericholecystic infiltration with prominent mucosal enhancement of the gallbladder. The infiltration is increased since MRCP of July 25, 2017 and favors acute cholecystitis. Findings discussed with Dr. Ridley at time of dictation. 2. Indeterminate 1.4 cm left renal lesion. This may reflect a solid renal lesion or complex cyst. A follow-up nonemergent renal protocol MRI is recommended. 3. Minimal pneumobilia presumably from recent sphincterotomy. No biliary or pancreatic ductal dilatation with biliary or pancreatic stents in place. Assessment: pt is a 31 yo male who presents to ER with RUQ pain, IMP: acute cholecystitis, cholelithiasis, Plan, I recommend to do laparoscopic cholecystectomy. possible open or cholangiogram, D/W benefits, risks and alternatives of the procedure, the risks - infection, bleeding, injury CBD, bowel, pt understood, he agrees with the surgery, I answered all questions,
[2017-08-06] MEDS ORDERED: PROPOFOL IV EMULSION 10 MG/ML 20 ML VIAL IV ONE (13:43)
[2017-08-06] MEDS ORDERED: MIDAZOLAM HCL 1 MG/ML 2ML VIAL ONE (13:43)
[2017-08-06] MEDS ORDERED: ROCURONIUM BROMIDE 10 MG/ML 5 ML VIAL IV ONE (13:43)
[2017-08-06] MEDS ORDERED: LIDOCAINE HCL 2% 2 ML VIAL (20MG/ML) ONE (13:43)
[2017-08-06] MEDS ORDERED: FENTANYL CITRATE INJ 50 MCG/1 ML 2 ML VIAL ONE ×3 (13:43→15:33)
[2017-08-06] MEDS ORDERED: HEPARIN SOD (PORCINE) 1000 UNIT/ML 10 ML VIAL ONE (13:54)
[2017-08-06] MEDS ORDERED: CEFAZOLIN SOD 1 GM VIAL ONE (13:54)
[2017-08-06] MEDS ORDERED: BUPIVACAINE 0.5 % 5 MG/1 ML MPF 30ML VIAL ONE (13:54)
--- NOTE | 2017-08-06 14:14 | History & Physical Bridge Note ---
H&P Re-Evaluation Bridge Note: I have examined the patient, reviewed the History & Physical and in the interval since the performance of the History & Physical I have noted the following changes of clinical significance: No changes noted
[2017-08-06] MEDS ORDERED: ONDANSETRON INJ 2 MG/ML 2 ML VIAL ONE (14:54)
[2017-08-06] MEDS ORDERED: DEXAMETHASONE SOD INJ 4 MG/ML VIAL ONE (14:54)
[2017-08-06] MEDS ORDERED: EpHEDrine SULFATE INJ 50 MG/ML AMP IV PRN (15:15)
[2017-08-06] MEDS ORDERED: FLUMAZENIL 0.1 MG/1 ML 10 ML VIAL IV PRN (15:15)
[2017-08-06] MEDS ORDERED: ONDANSETRON INJ 2 MG/ML 2 ML VIAL IV PRN (15:15)
[2017-08-06] MEDS ORDERED: PROMETHAZINE HCL INJ 12.5 MG in SODIUM CHLORIDE 0.9% 50ML 50 ML IV PRN (15:15)
[2017-08-06] MEDS ORDERED: HYDROmorphone INJ 1 MG/ML SYR IV PRN (15:15)
[2017-08-06] MEDS ORDERED: ATROPINE SULFATE 0.1 MG/ML 5ML SYR IV PRN (15:15)
[2017-08-06] MEDS ORDERED: NALOXONE HCL 0.4 MG/1 ML VIAL/CARP IV PRN (15:15)
[2017-08-06] MEDS ORDERED: NEOSTIGMINE METHYLSULFATE 5 MG/5 ML SYR ONE (16:14)
[2017-08-06] MEDS ORDERED: GLYCOPYRROLATE INJ 0.2 MG/ML VIAL ONE (16:14)
[2017-08-06] MEDS ORDERED: FLOSEAL HEMOSTATIC MATRIX 10ML TOP ONE (16:31)
--- NOTE | 2017-08-06 16:44 | [facility] Post Operative Brief Note ---
Immediate Operative Summary Operative Date Aug 06, 2017. Pre-Operative Diagnosis Acute cholecystitis,cholelithasis Post-Operative Diagnosis Same Procedure(s) Performed Laparoscopic cholecystectomy Surgeon Dr Walsh Vehicle Service Attendant Surgeon(s) none Estimated Blood Loss 40ml Findings Consistent with Post-Op Diagnosis Specimens a. gallbladder Drains one J-P in the subhepatic space Anesthesia Type General Complication(s) none Disposition Disposition: Recovery Room / PACU
--- NOTE | 2017-08-06 17:40 | Anesthesiology Progress Note ---
Anesthesia Post Op Note Date & Time Aug 06, 2017 at 17:39 Vital Signs Pain Intensity: 0 Vital Signs Past 12 Hours Date Time Temp Pulse Resp B/P (MAP) Pulse Ox O2 Delivery O2 Flow Rate FiO2 08/06/17 17:20 36.5 67 16 140/84 99 Nasal Cannula 3 08/06/17 17:10 73 16 141/83 98 Nasal Cannula 3 08/06/17 17:00 75 16 136/77 100 Oxymask 3 08/06/17 16:50 77 16 134/83 100 Oxymask 5 08/06/17 16:44 36.5 86 14 155/78 99 Oxymask 10 08/06/17 08:09 Room Air 08/06/17 07:22 37.0 88 16 118/65 (82) 97 Room Air Notes Mental Status: alert / awake / arousable, participated in evaluation Pt Amnestic to Procedure: Yes Nausea / Vomiting: adequately controlled Pain: adequately controlled Airway Patency, RR, SpO2: stable & adequate BP & HR: stable & adequate Hydration State: stable & adequate Anesthetic Complications: no major complications apparent
[2017-08-06] MEDS: OXYCODONE/ACETAMINOPHEN 5-325 TAB PO PRN (19:16)
[2017-08-07] MEDS: LACTATED RINGER'S 1000ML 1,000 ML IV SCH ×4 (02:14→22:06)
--- NOTE | 2017-08-07 02:15 | OPERATIVE REPORT ---
DATE OF OPERATION: 08/06/2017 PREOPERATIVE DIAGNOSES: Acute cholecystitis, cholelithiasis. POSTOPERATIVE DIAGNOSES: Same. PROCEDURE: Laparoscopic cholecystectomy. SURGEON: Dr. Walsh. FINDINGS: The gallbladder had multiple thick adhesions of the omentum. They extended from the fundus to the body and to the infundibulum. The tissue over the infundibulum and cystic duct area was markedly thickened. It required very meticulous dissection to identify the structures. The gallbladder wall was markedly thickened. It was densely adherent to the liver and there was not a good plane of dissection. The cystic duct was mildly dilated. The liver was of normal size and contour and the visible bowel appeared normal. TECHNIQUE: The patient was given a general anesthetic and the area was prepped and draped in the usual sterile fashion. Transverse incision was made below the umbilicus, carried down through the subcutaneous tissue to the fascia which was grasped with 2 Mely clamps and incised between. The peritoneum was identified, incised, and the introducer was placed bluntly. The abdomen was then insufflated to a pressure of 15 mmHg with carbon dioxide. The upper midline, midclavicular and anterior axillary introducers were placed under direct vision through small skin incisions. Traction was attempted to be placed on the gallbladder; however, because of the thickened wall and its distention, I could not. I placed the drainage needle under direct vision and was able to drain white bile from the gallbladder. That allowed us to then grasp and elevate the gallbladder. The adhesions of the omentum were taken down using blunt and cautery dissection. There was some oozing from all of the dissection surfaces, they had to be controlled with some cautery. I worked over the body and down toward the infundibulum. I was able to separate some of the thickened attachment of the gallbladder on the lateral side of the infundibulum and lower body of the gallbladder and then worked inferiorly. Using blunt and meticulous millimeter by millimeter dissection, I then was able to free the infundibulum on the lateral side. The tissues on the medial side were very thickened and required millimeter by millimeter meticulous dissection on that side as well, but I was eventually able to identify the cystic duct. There were a lot of thickened peritoneum portions and lymphatics that were each peeled individually and down along the cystic duct. That allowed me to identify the wall of the cystic duct directly and establish a plane behind the cystic duct as well, and once I was behind the cystic duct, I then was able to identify additional thickened attachments which were divided. That allowed better mobility of infundibulum and allowed me to confirm the cystic duct-gallbladder junction. Three clips were placed on the proximal cystic duct, 1 near the gallbladder, and it was divided. I was able to elevate that. Some of the tissues behind the cystic duct were not quite as thickened and I was able to dissect them and peel them down toward the common bile duct, working from lateral to medial, I was able to identify the cystic artery. It too had a lot of thickened tissues attached to it that required meticulous dissection until I could isolate it, clamp it twice proximally and once near the gallbladder and divide it. I then dissected the gallbladder away from the liver; however, it was densely adherent and identifying the plane was difficult. It was difficult to identify the capsule of the liver and the wall of the gallbladder. Meticulous dissection again was required using cautery and blunt dissection to peel the gallbladder away from the liver but I was eventually able to complete that. The gallbladder was placed into an Endobag and brought out through the upper midline incision when I had to increase the size of the incision in order to get the gallbladder out within the bag but that was accomplished. That introducer was replaced and liver edge was elevated. There was a small arterial area of bleeding behind the capsule of the liver and the raw surface of the liver up close to the edge of the connection between the liver and the fundus. This was clipped and then cauterized. There was no further bleeding. There was 1 other area of oozing of the gallbladder bed of the liver and this was easily controlled with cautery. The subdiaphragmatic and subhepatic spaces were irrigated. Any clots and blood from all of the oozing were removed. The sequence of irrigation and removal was repeated until the return was clear. The gallbladder bed of the liver was again inspected. There was no bleeding. Because of the amount of raw surface, I filled the gallbladder bed of the liver with FloSeal. I then brought a 10-mm flat Jamar-Todd out through the anterior axillary introducer site and placed in the subhepatic space. This was secured to the skin with 3-0 nylon. The gallbladder bed of the liver was again inspected. FloSeal was placed. The gas was allowed to escape and the introducers were removed. The fascia of the umbilical and upper midline introducer sites was closed with interrupted 0 Vicryl. Skin of all the incisions was closed with 4-0 Monocryl in either an interrupted or running subcuticular fashion. The skin was anesthetized with 0.5% Marcaine. The skin was cleansed, dried, benzoin placed, Steri-Strips applied. Estimated blood loss was 20 mL. Sponge, needle and instrument counts were correct prior to closure. The patient tolerated the surgical procedure without complication and was transferred to recovery. I attest to the content of the Intraoperative Record and any orders documented therein. Any exception s are noted below.
[2017-08-07] MEDS ORDERED: NURSING VERBAL MED ORDER ONE (02:30)
[2017-08-07 03:00] VITALS: BP 126/78; PULSE 76; TEMP 37.1; O2SAT 95
[2017-08-07] MEDS: METRONIDAZOLE / NSS 500 MG in PREMIXED NSS 100 ML IV SCH ×3 (03:17→19:59)
[2017-08-07] MEDS: RANITIDINE IV 50 MG in DEXTROSE 5% 100ML 100 ML IV SCH ×2 (04:29→13:40)
[2017-08-07] MEDS: OXYCODONE/ACETAMINOPHEN 5-325 TAB PO PRN ×3 (05:03→17:32)
[2017-08-07 07:10] VITALS: BP 119/75; PULSE 81; TEMP 36.6; O2SAT 95
[2017-08-07] MEDS: CIPROFLOXACIN / D5W 400 MG in PREMIXED IN D5W 200 ML IV SCH ×2 (08:30→21:04)
--- NOTE | 2017-08-07 11:22 | Anesthesiology Progress Note ---
Anesthesia Post Op Note Date & Time Aug 07, 2017 at 11:21 Vital Signs Pain Intensity: 5.0 Vital Signs Past 12 Hours Date Time Temp Pulse Resp B/P (MAP) Pulse Ox O2 Delivery O2 Flow Rate FiO2 08/07/17 07:45 Room Air 08/07/17 07:10 36.6 81 16 119/75 (90) 95 Room Air 08/07/17 03:00 37.1 76 16 126/78 (94) 95 Room Air 08/06/17 23:50 96 Room Air Notes Mental Status: alert / awake / arousable, participated in evaluation Pt Amnestic to Procedure: Yes Nausea / Vomiting: adequately controlled Pain: adequately controlled Airway Patency, RR, SpO2: stable & adequate BP & HR: stable & adequate Hydration State: stable & adequate Anesthetic Complications: no major complications apparent Awake, alert, satisifed with anesethesia. VSS
[2017-08-07 11:51] VITALS: BP 121/76; PULSE 88; TEMP 37.3; O2SAT 95
--- NOTE | 2017-08-07 13:09 | Surgery Progress Note ---
Surgery Progress Note Date of Service Aug 07, 2017. Subjective Post OP Day: 1 + pain controlled, No nausea, No vomiting [place] "a little light-headed" earlier Has shoulder pain, worse yesterday Objective Vital Signs: Date Time Temp Pulse Resp B/P (MAP) Pulse Ox O2 Delivery O2 Flow Rate FiO2 08/07/17 11:51 37.3 88 18 121/76 (91) 95 Room Air 08/07/17 07:45 Room Air 08/07/17 07:10 36.6 81 16 119/75 (90) 95 Room Air 08/07/17 03:00 37.1 76 16 126/78 (94) 95 Room Air 08/06/17 23:50 96 Room Air 08/06/17 23:11 37.3 76 16 128/76 (93) 96 Room Air 08/06/17 20:24 36.7 85 16 138/82 (100) 95 Room Air 08/06/17 19:33 37.7 64 16 147/79 (101) 98 Nasal Cannula 2.0 08/06/17 18:30 37.4 69 16 136/85 (102) 98 Nasal Cannula 2.0 08/06/17 18:04 37.2 76 16 123/79 (94) 98 Nasal Cannula 2.0 08/06/17 17:30 97 Nasal Cannula 3.0 08/06/17 17:30 97 Nasal Cannula 3.0 08/06/17 17:30 37.5 69 16 131/88 (102) 97 Nasal Cannula 3.0 08/06/17 17:20 36.5 67 16 140/84 99 Nasal Cannula 3 08/06/17 17:10 73 16 141/83 98 Nasal Cannula 3 08/06/17 17:00 75 16 136/77 100 Oxymask 3 08/06/17 16:50 77 16 134/83 100 Oxymask 5 08/06/17 16:44 36.5 86 14 155/78 99 Oxymask 10 Abdomen: non distended, soft, + tenderness (incisional only) Assessment & Plan S/P lap johnathan for acute cholecystitis Continue IV antibiotics Vitals stable, will check CBC Encouraged PO and ambulation
[2017-08-07 13:11] LABS: BASO % 0.1 %; BASO ABS # 0.01 K/uL (0-0.2); HEMATOCRIT 37.9 % (42-52); HEMOGLOBIN 13.1 g/dL (14.0-18.0); IG# 0.02 K/uL (0.00-0.02); LYMPH % 8.8 %; MEAN CELL VOLUME 85.9 fL (80-100); MEAN CORPUSCULAR HEMOGLOBIN 29.7 pg (25-34); MEAN CORPUSCULAR HGB CONC 34.6 g/dl (32-36); MEAN PLATELET VOLUME 10.6 fL (7.4-10.4); MONO % 9.8 %; MONO ABS # 1.12 K/uL (0.11-0.59); NEUT % 81.1 %; NEUT ABS # 9.27 K/uL (1.4-6.5); PLATELET COUNT 223 K/uL (130-400); RED CELL DISTRIBUTION WIDTH CV 12.7 % (11.5-14.5); RED CELL DISTRIBUTION WIDTH SD 40.3 fL (36.4-46.3); WHITE BLOOD COUNT 11.42 K/uL (4.8-10.8)
[2017-08-07 14:45] VITALS: BP 121/76; PULSE 98; TEMP 36.9; O2SAT 91
[2017-08-07 22:59] VITALS: BP 118/71; PULSE 80; TEMP 37.5; O2SAT 93
[2017-08-08 00:15] VITALS: O2SAT 93
[2017-08-08] MEDS: OXYCODONE/ACETAMINOPHEN 5-325 TAB PO PRN (00:28)
[2017-08-08] MEDS: METRONIDAZOLE / NSS 500 MG in PREMIXED NSS 100 ML IV SCH ×3 (03:00→22:35)
[2017-08-08 07:12] VITALS: BP 134/70; PULSE 100; TEMP 37.3; O2SAT 95
[2017-08-08 07:20] LABS: BASO % 0.3 %; BASO ABS # 0.02 K/uL (0-0.2); EOS % 0.7 %; EOS ABS # 0.05 K/uL (0-0.5); HEMATOCRIT 35.9 % (42-52); IG# 0.01 K/uL (0.00-0.02); LYMPH % 23.2 %; LYMPH ABS # 1.61 K/uL (1.2-3.4); MEAN CELL VOLUME 88.9 fL (80-100); MEAN CORPUSCULAR HEMOGLOBIN 29.7 pg (25-34); MEAN CORPUSCULAR HGB CONC 33.4 g/dl (32-36); MEAN PLATELET VOLUME 11.1 fL (7.4-10.4); MONO % 10.9 %; MONO ABS # 0.76 K/uL (0.11-0.59); NEUT % 64.8 %; PLATELET COUNT 201 K/uL (130-400); RED CELL DISTRIBUTION WIDTH SD 41.9 fL (36.4-46.3); WHITE BLOOD COUNT 6.95 K/uL (4.8-10.8)
--- NOTE | 2017-08-08 07:46 | Surgery Progress Note ---
Surgery Progress Note Date of Service Aug 08, 2017. Subjective Post OP Day: 2 + ambulating (did well yesterday), + flatus, + pain controlled, + diet ( tolerated diet), No bowel movement, No nausea, No vomiting Light-headedness resolved Objective Vital Signs: Date Time Temp Pulse Resp B/P (MAP) Pulse Ox O2 Delivery O2 Flow Rate FiO2 08/08/17 07:12 37.3 100 20 134/70 (91) 95 Room Air 08/08/17 00:15 93 Room Air 08/07/17 22:59 37.5 80 16 118/71 (87) 93 Room Air 08/07/17 17:00 Room Air 08/07/17 14:45 36.9 98 18 121/76 (91) 91 Room Air 08/07/17 11:51 37.3 88 18 121/76 (91) 95 Room Air 08/07/17 07:45 Room Air Physical Exam: JERALD drainage (40 cc yesterday, 10 cc last shift, serosanguinous) Abdomen: non distended, soft, + tenderness (mild) Incision(s): clean, dry, intact, no erythema Laboratory Results: Results Past 24 Hours Test 08/07/17 12:58 08/08/17 06:26 Range/Units White Blood Count 11.42 6.95 4.8-10.8 K/uL Red Blood Count 4.41 4.04 4.7-6.1 M/uL Hemoglobin 13.1 12.0 14.0-18.0 g/dL Hematocrit 37.9 35.9 42-52 % Mean Corpuscular Volume 85.9 88.9 80-100 fL Mean Corpuscular Hemoglobin 29.7 29.7 25-34 pg Mean Corpuscular Hemoglobin Concent 34.6 33.4 32-36 g/dl Platelet Count 223 201 130-400 K/uL Mean Platelet Volume 10.6 11.1 7.4-10.4 fL Neutrophils (%) (Auto) 81.1 64.8 % Lymphocytes (%) (Auto) 8.8 23.2 % Monocytes (%) (Auto) 9.8 10.9 % Eosinophils (%) (Auto) 0.0 0.7 % Basophils (%) (Auto) 0.1 0.3 % Neutrophils # (Auto) 9.27 4.50 1.4-6.5 K/uL Lymphocytes # (Auto) 1.00 1.61 1.2-3.4 K/uL Monocytes # (Auto) 1.12 0.76 0.11-0.59 K/uL Eosinophils # (Auto) 0.00 0.05 0-0.5 K/uL Basophils # (Auto) 0.01 0.02 0-0.2 K/uL RDW Standard Deviation 40.3 41.9 36.4-46.3 fL RDW Coefficient of Variation 12.7 13.0 11.5-14.5 % Immature Granulocyte % (Auto) 0.2 0.1 % Immature Granulocyte # (Auto) 0.02 0.01 0.00-0.02 K/uL Assessment & Plan S/P lap johnathan for acute cholecystitis Mild temp elevation las night Would continue IV antibiotics H&H stable Vitals stable Encouraged PO and ambulation
[2017-08-08] MEDS: CIPROFLOXACIN / D5W 400 MG in PREMIXED IN D5W 200 ML IV SCH ×2 (09:28→20:37)
[2017-08-08] MEDS: LACTATED RINGER'S 1000ML 1,000 ML IV SCH ×2 (09:28→22:49)
[2017-08-08] MEDS ORDERED: NURSING VERBAL MED ORDER ONE (15:00)
[2017-08-08 15:12] VITALS: BP 135/79; PULSE 86; TEMP 37.6; O2SAT 95
[2017-08-08 16:00] VITALS: O2SAT 95
[2017-08-08 22:22] VITALS: BP 134/79; PULSE 97; TEMP 37.5; O2SAT 95
[2017-08-09] MEDS: METRONIDAZOLE / NSS 500 MG in PREMIXED NSS 100 ML IV SCH (06:21)
[2017-08-09 06:39] LABS: BASO % 0.4 %; BASO ABS # 0.02 K/uL (0-0.2); EOS % 4.9 %; EOS ABS # 0.28 K/uL (0-0.5); HEMATOCRIT 39.6 % (42-52); HEMOGLOBIN 13.3 g/dL (14.0-18.0); LYMPH % 38.1 %; LYMPH ABS # 2.16 K/uL (1.2-3.4); MEAN CORPUSCULAR HEMOGLOBIN 29.9 pg (25-34); MEAN CORPUSCULAR HGB CONC 33.6 g/dl (32-36); MEAN PLATELET VOLUME 10.8 fL (7.4-10.4); MONO % 9.7 %; MONO ABS # 0.55 K/uL (0.11-0.59); NEUT % 46.9 %; NEUT ABS # 2.66 K/uL (1.4-6.5); PLATELET COUNT 259 K/uL (130-400); RED CELL DISTRIBUTION WIDTH CV 12.8 % (11.5-14.5); RED CELL DISTRIBUTION WIDTH SD 41.7 fL (36.4-46.3); WHITE BLOOD COUNT 5.67 K/uL (4.8-10.8)
[2017-08-09 07:14] VITALS: BP 131/87; PULSE 81; TEMP 36.5; O2SAT 94
[2017-08-09] MEDS: CIPROFLOXACIN / D5W 400 MG in PREMIXED IN D5W 200 ML IV SCH (08:30)
[2017-08-09] MEDS ORDERED: AMOX875T PO (09:27)
[2017-08-09] MEDS ORDERED: OXYC-57 PO (09:27)
--- NOTE | 2017-08-09 09:33 | Discharge Instructions ---
Discharge Instructions Date of Service Aug 09, 2017. Admission Reason for Admission: Acute Cholecystitis Discharge Discharge Diagnosis / Problem: same Discharge Goals Goal(s): Decrease discomfort, Improve function Activity Recommendations Activity Limitations: per Instructions/Follow-up section No heavy lifting over 10 pounds for 2 weeks No strenuous activity until cleared by surgeon No submerging incisions underwater for 2 weeks (no bathing, swimming, or hot tubs) No driving while taking narcotic pain medication or until you are pain free . Instructions / Follow-Up Instructions / Follow-Up You may shower in 24 hours. Pat incisions dry after showering. Leave steri strips on incisions for 7 days and then remove. They may fall off on their own that is okay. The drain site will close on its own Walking and light activity is encouraged to prevent blood clots from forming You will be given narcotic pain medication (Percocet) as needed for moderate to severe pain. This medication may make you drowsy and can cause constipation. Drink plenty of water and take daily stool softener such as OTC Colace to help prevent constipation. You may take extra strength Ibuprofen in between Percocet dosing if needed for pain. If you are no longer taking Percocet but still require some pain medication you may take extra strength Tylenol or Ibuprofen as needed. Do not take Tylenol in between doses of Percocet as Percocet has Tylenol in it. Follow-up in surgical office in 1-2 weeks, please call office at [phone] to make an appointment. You will be given prescription for 5 days of antibiotic (Augmentin) please take entire course as directed. Current Hospital Diet Patient's current hospital diet: Regular Diet Discharge Diet Recommended Diet: Regular Diet Procedures Procedures Performed: Laparoscopic cholecystectomy Pending Studies Studies pending at discharge: yes List of pending studies: Gallbladder pathology, will be reviewed at follow up visit Medical Emergencies . Who to Call and When: Medical Emergencies: If at any time you feel your situation is an emergency, please call 911 immediately. . Non-Emergent Contact Non-Emergency issues call your: Primary Care Provider, Surgeon Call Non-Emergent contact if: you have a fever, temperature is above 101, your pain is not controlled, your pain is worsening, your pain is unusual for you, wound has increased drainage, wound has increased redness, wound has increased pain . "Provider Documentation" section prepared by Liz Fields. . VTE Core Measure Inpt VTE Proph given/why not?: SCD's [place] Drug Monitoring Program Search Results: patient reviewed within database, no issues identified
[2017-08-09 09:36] VITALS: BP 131/87; PULSE 81; TEMP 36.5; O2SAT 94
--- NOTE | 2017-08-09 09:41 | Surgery Progress Note ---
Surgery Progress Note Date of Service Aug 09, 2017. Subjective Post OP Day: 3 (s/p laparoscopic cholecystectomy) + feeling well, + ambulating, + flatus, + pain controlled, + diet (regular diet) , No complaints, No chest pain, No SOB, No bowel movement, No nausea, No vomiting Objective Vital Signs: Date Time Temp Pulse Resp B/P (MAP) Pulse Ox O2 Delivery O2 Flow Rate FiO2 08/09/17 07:25 Room Air 08/09/17 07:14 36.5 81 16 131/87 (102) 94 Room Air 08/08/17 23:40 Room Air 08/08/17 22:22 37.5 97 17 134/79 (97) 95 Room Air 08/08/17 16:00 95 Room Air 08/08/17 15:12 37.6 86 17 135/79 (97) 95 Room Air Physical Exam: JERALD drainage (scant serous ) General Appearance: WD/WN, no apparent distress Head: normocephalic, atraumatic Neck: trachea midline Respiratory/Chest: no respiratory distress, no accessory muscle use Abdomen: non distended, soft, no organomegaly, no pulsatile mass, + tenderness (RUQ and LUQ on deep palpation and at incision sites, appropriate post op and improved) Incision(s): clean, dry, intact, no erythema, no drainage, findings (steri strips present) Laboratory Results: Results Past 24 Hours Test 08/09/17 06:12 Range/Units White Blood Count 5.67 4.8-10.8 K/uL Red Blood Count 4.45 4.7-6.1 M/uL Hemoglobin 13.3 14.0-18.0 g/dL Hematocrit 39.6 42-52 % Mean Corpuscular Volume 89.0 80-100 fL Mean Corpuscular Hemoglobin 29.9 25-34 pg Mean Corpuscular Hemoglobin Concent 33.6 32-36 g/dl Platelet Count 259 130-400 K/uL Mean Platelet Volume 10.8 7.4-10.4 fL Neutrophils (%) (Auto) 46.9 % Lymphocytes (%) (Auto) 38.1 % Monocytes (%) (Auto) 9.7 % Eosinophils (%) (Auto) 4.9 % Basophils (%) (Auto) 0.4 % Neutrophils # (Auto) 2.66 1.4-6.5 K/uL Lymphocytes # (Auto) 2.16 1.2-3.4 K/uL Monocytes # (Auto) 0.55 0.11-0.59 K/uL Eosinophils # (Auto) 0.28 0-0.5 K/uL Basophils # (Auto) 0.02 0-0.2 K/uL RDW Standard Deviation 41.7 36.4-46.3 fL RDW Coefficient of Variation 12.8 11.5-14.5 % Immature Granulocyte % (Auto) 0.0 % Immature Granulocyte # (Auto) 0.00 0.00-0.02 K/uL Assessment & Plan POD # 3 s/p laparoscopic cholecystectomy -vitals stable, Tmax 37.6 - no leukocytosis, H&H stable - JERALD drain with minimal serous output, 15 cc yesterday in 24 hours - tolerating regular diet, pain controlled, passing flatus, urinating without difficulty Plan: Discharge home today Discontinue JERALD drain prior to discharge Discharge instructions reviewed Rx for Percocet prn pain and 5 days of Augmentin Follow-up surgical office 1-[address] Walsh has seen and examined patient, agrees with above.
--- NOTE | 2017-08-09 15:46 | Discharge Summary ---
Discharge Summary Dates Admission Date / Time: Aug 05, 2017 at 17:44 Discharge Date: Aug 09, 2017 Dispostion / Condition Discharge Disposition: Home Condition at Discharge: Good Principal Diagnosis (1) Acute cholecystitis Problem List (1) Biliary obstruction Consultations / Procedures Consultations: None Procedures: Laparoscopic Cholecystectomy with placement of JERALD drain Vaccinations: None Pending Studies / Follow-Up Gallbladder pathology will be reviewed at follow up visit Medication Reconciliation New Medications: Amoxicillin & Pot Clavulanate (Augmentin 875-125 mg) 1 Tab Tab 1 TAB PO BID for 5 Days, #10 TAB Oxycodone/Acetaminophen 5MG/325MG (Percocet 5MG/325MG) Tab 1 TABLET PO Q4H PRN for Pain, #18 TAB Discontinued Medications: Ciprofloxacin (Ciprofloxacin HCl) 500 Mg Tab 500 MG PO BID for 13 Days, #26 TAB Admission HPI Per the Admitting provider: This a 31 year old male who presents to the Emergency Room with complaints of constant abdominal pain beginning last night. He was previously hospitalized with CBD stone is s/p ERCP with stent placement. He was scheduled for outpatient lap johnathan with Dr German but did not follow through. He comes in with repeat pain and nausea/chills. The patient states his pain is similar to the pain he had with the gallstone. He denies LOC, headache, fevers, diaphoresis, visual changes, neck pain, chest pain, breathing difficulties, vomiting, back pain, melena, hematochezia, urinary symptoms, numbness, weakness, lymphadenopathy, rash, or other complaints. A CT scan shows acute cholecystitis with an elevated WBC. Admission Exam Per the Admitting provider: General Appearance: WD/WN, no apparent distress Head: normocephalic, atraumatic Eyes: normal inspection, PERRL, EOMI, sclerae normal ENT: normal ENT inspection Neck: supple, trachea midline Respiratory/Chest: chest non-tender, lungs clear Cardiovascular: regular rate, rhythm, no gallop, no murmur Abdomen/GI: normal bowel sounds, soft, no organomegaly, + tenderness (mild) Genitourinary - Male: normal male genitalia Back: normal inspection, no CVA tenderness Extremities/Musculoskelatal: normal inspection, no calf tenderness, no pedal edema Neurologic/Psych: no motor/sensory deficits, alert, normal mood/affect, oriented x 3 Skin: normal color, warm/dry, no rash Lymphatic: no adenopathy Hospital Course (1) Acute cholecystitis Patient was admitted to medical/surgical floor for observation and added to operating room scheduled for laparoscopic cholecystectomy in the morning of Sunday08/06/2017. Patient was taken to operating room for laparoscopic cholecystectomy by Dr. Walsh in the afternoon of 08/06/2017. Patient was found to have significant inflammation of the gallbladder in which dissection was difficult. Required placement of surgical drain for monitoring of any bleeding. Patient tolerated procedure well and was transferred to recovery room and then to medical/surgical floor for post operative care. IV Fluids were continued, IV antibiotics of Cipro/Flagyl were continued, PO Percocet with breakthrough IV Morphine as needed for pain, IV Zofran as needed for nausea, activity as tolerated, SCDs, and JERALD drain to bulb suction and diet advanced to regular diet. Patient evaluated on POD # 1. Had some moderate shoulder discomfort and lightheadedness. Mild increase in leukocytosis of 11K. H&H stable at 13.7/37.9. Patient was kept overnight for pain management and observation of JERALD drain. POD # 2 patient felt better. Tolerating regular diet , urinating without difficulty. Leukocytosis resolved. H&H stable. JERALD drain wtih minimal output, serosanguineous. Patient kept one more evening given mild fever. POD # 3 patient feeling well. Afebrile overnight. Vitals stable. Tolerated regular diet. H&H stable. no leukocytosis. Jerald drain with 15 cc output in 24 hours. Patient was discharged home on POD # 3 in stable condition. JERALD drain removed prior to discharge. Discharge Instructions as given to patient Copies To Primary Care Provider: No Doctor, Assigned.
== END 2017-08-09 10:07 | disposition home or self-care (01) | DRG 419 ==
LOC: C.EDB 15:16 → C.MSN 17:44 → ENRESERV 18:05
PROVIDERS: ADMIT Surgery; ATTEND Surgery
PROC: 0FT44ZZ Resection of Gallbladder, Percutaneous Endoscopic Approach (ICD-10-PCS; principal; 2017-08-06 12:45)
DX: K80.01 Calculus of gallbladder with acute cholecystitis with obstruction (principal); Z82.49 Family history of ischemic heart disease and other diseases of the circulatory system